=== PATIENT | male | born 1955 | race Caucasian/White ===

== ENCOUNTER → 2017-12-10 | Outpatient (CLI) | payer BC ==
[~2017-12-10] MED LIST: 2% VISCOUS XYLOCAINE; ALPR0.5T11 PO; ALPR0.5T3 PO; ALPR2TAB6 PO; FINA5TAB6 PO; HYDR-3454 PO; NITR100C3 PO; PARO20TA4 PO; PREG150C PO; SRTR100T PO; TMSL.4C PO
--- NOTE | 2017-12-10 13:22 | Diagnostic Imaging Report ---
PROCEDURE: CT right lower extremity without contrast. TECHNIQUE: Axially acquired CT was obtained through the right lower extremity without intravenous contrast. Coronal and sagittal reformations were also performed. INDICATION: Preop planning for knee replacement. COMPARISON: None. FINDINGS: Multiple series are performed, including portions of the right hip, distal right femur, the right knee, and small [id number] images of the right ankle. Advanced degenerative changes are seen in the right hip and knee. There are very large osteophytes seen in all three compartments of the right knee. There is a small right knee joint effusion with surrounding soft tissue prominence and fat stranding, likely synovitis. There are severe degenerative changes at the proximal tibiofibular joint with heterotopic ossification. There may be a cystic fluid collection posterior to the proximal tibiofibular joint as well, may represent a ganglion cyst. No acute fracture is seen. No focal muscular atrophy is appreciated. The imaged portions of the common peroneal and tibial nerve are unremarkable. There is soft tissue density at the lateral aspect of the knee, which is ill defined, with internal hypodensity suggestive of a fluid collection, may be confluent with the tibiofibular joint as well. There is a prominent os acetabuli on the right. Fragmentation is seen at the distal tip of the medial malleolus, likely from remote trauma. IMPRESSION: 1. Advanced tricompartmental degenerative changes in the right knee, with a joint effusion and likely synovitis. There is also a fluid collection about the proximal degenerated tibiofibular joint, which is poorly defined on this noncontrast CT, may represent a large ganglion cyst or bursitis. 2. Advanced degenerative changes of the right hip. Dictated by: Dictated on workstation # [id number]
== END ==
LOC: RAD 12:09
PROVIDERS: ATTEND Orthopaedic Surgery
DX: Z01.818 Encounter for other preprocedural examination (principal); M17.11 Unilateral primary osteoarthritis, right knee; M16.11 Unilateral primary osteoarthritis, right hip
CPT/HCPCS: 73700

== ENCOUNTER 2018-01-06 12:58 | Outpatient (CLI) | payer BC ==
[~2018-01-06] VITALS: Ht 177.8 cm; Wt 115.0 kg
[2018-01-06] MEDS ORDERED: ALFU10TA11 PO (13:17)
[2018-01-06] MEDS ORDERED: VILA40TA PO (13:17)
[2018-01-06] MEDS ORDERED: HYDR-3584 PO (13:17)
[2018-01-06] MEDS ORDERED: FINA5TAB6 PO (13:17)
[2018-01-06] MEDS ORDERED: GABA-490 PO (13:17)
[2018-01-06 13:20] VITALS: BP 131/89
[2018-01-06 13:53] LABS: BASOPHILS % (AUTO) 1 % (0-10); EOSINOPHILS # (AUTO) 0.2 10^3/uL (0.0-0.3); EOSINOPHILS % (AUTO) 3 % (0-10); HEMATOCRIT 43 % (40-54); HEMOGLOBIN 14.5 G/DL (13.3-17.7); LYMPHOCYTES # (AUTO) 2.1 X 10^3 (1.0-4.0); LYMPHOCYTES % (AUTO) 28 % (12-44); MEAN CORPUSCULAR HEMOGLOBIN 31 PG (25-34); MEAN CORPUSCULAR HGB CONC 34 G/DL (32-36); MEAN CORPUSCULAR VOLUME 91 FL (80-99); MEAN PLATELET VOLUME 9.9 FL (7.4-10.4); MONOCYTES # (AUTO) 0.6 X 10^3 (0.0-1.0); MONOCYTES % (AUTO) 8 % (0-12); NEUTROPHILS # (AUTO) 4.4 X 10^3 (1.8-7.8); NEUTROPHILS % (AUTO) 60 % (42-75); PLATELET COUNT 322 10^3/uL (130-400); RED BLOOD COUNT 4.69 10^6/uL (4.35-5.85); RED CELL DISTRIBUTION WIDTH 14.1 % (10.0-14.5); WHITE BLOOD COUNT 7.3 10^3/uL (4.3-11.0)
[2018-01-06 13:56] LABS: BILIRUBIN,URINE NEGATIVE (NEGATIVE); CLARITY,URINE CLEAR; COLOR,URINE YELLOW; GLUCOSE, URINE (UA) NEGATIVE (NEGATIVE); KETONES,URINE NEGATIVE (NEGATIVE); LEUKOCYTE ESTERASE ,URINE NEGATIVE (NEGATIVE); NITRITE,URINE NEGATIVE (NEGATIVE); PH,URINE 6 (5-9); PROTEIN,URINE NEGATIVE (NEGATIVE); UROBILINOGEN,URINE NORMAL (NORMAL)
[2018-01-06 14:04] LABS: INR 0.9 (0.8-1.4); PROTHROMBIN TIME PATIENT 12.2 SEC (12.2-14.7)
--- NOTE | 2018-01-06 14:04 | Diagnostic Imaging Report ---
INDICATION: Preop for knee arthroplasty. TIME OF EXAM: 02:15 p.m. Correlation is made with prior study from 06/02/2014. FINDINGS: The heart size is normal. The pulmonary vascularity is unremarkable. The lungs are clear. No infiltrate, effusion or pneumothorax is detected. IMPRESSION: No acute cardiopulmonary process is detected. Dictated by: Dictated on workstation # [id number]
[2018-01-06 14:05] LABS: BACTERIA,URINE NEGATIVE /HPF; WBC,URINE RARE /HPF
[2018-01-06 14:06] LABS: SQUAMOUS EPITHELIAL CELL,UR 0-2 /HPF
[2018-01-06 14:20] LABS: ERYTHROCYTE SEDIMENTATION RATE 10 MM/HR (0-30)
[2018-01-06 14:23] LABS: ALANINE AMINOTRANSFERASE 22 U/L (0-55); ALBUMIN 4.1 GM/DL (3.2-4.5); ALKALINE PHOSPHATASE 79 U/L (40-136); BILIRUBIN,TOTAL 0.4 MG/DL (0.1-1.0); BUN/CREATININE RATIO 17; CALCIUM 8.9 MG/DL (8.5-10.1); CARBON DIOXIDE 28 MMOL/L (21-32); CHLORIDE 107 MMOL/L (98-107); CREATININE SERUM 0.78 MG/DL (0.60-1.30); GFR ESTIMATED > 60; GLUCOSE 95 MG/DL (70-105); POTASSIUM 3.8 MMOL/L (3.6-5.0); SODIUM 141 MMOL/L (135-145)
== END 2018-01-06 14:56 | disposition home or self-care (01) ==
LOC: PREOP 12:58
PROVIDERS: ATTEND Orthopaedic Surgery
DX: Z01.810 Encounter for preprocedural cardiovascular examination (principal); Z01.811 Encounter for preprocedural respiratory examination; Z01.812 Encounter for preprocedural laboratory examination; Z11.2 Encounter for screening for other bacterial diseases; M17.11 Unilateral primary osteoarthritis, right knee; R53.83 Other fatigue
CPT/HCPCS: 36415; 71046; 80053; 81000; 85025; 85610; 85652; 86850; 86900; 86901; 87081; 93005

== ENCOUNTER 2018-01-15 06:09 | Inpatient (IN) | payer BC ==
--- NOTE | 2018-01-06 12:46 | HISTORY AND PHYSICAL ---
DATE OF SERVICE: This will be for right total knee arthroplasty. This will be an inpatient admission. HISTORY OF PRESENT ILLNESS: The patient is a 62-year-old gentleman with longstanding progressive right knee pain. He has known severe osteoarthritis of his knee. He has undergone treatment with injections and activity modifications as well as with anti-inflammatories without relief. He reports interference with work and his recreational activities and due to failure to improve with conservative measures, the patient elected to proceed with total knee arthroplasty. REVIEW OF SYSTEMS: No chest pain, no shortness of breath. No dysuria. FAMILY HISTORY: Significant for cancer. PRIMARY CARE PROVIDER: Dr. Person. MEDICATIONS: 1. Alfuzosin. 2. Finasteride. 2. Gabapentin 3. Hydroxyzine 4. Viibryd. ALLERGIES: To PENICILLIN, SULFA and ASPIRIN. SOCIAL HISTORY: The patient reports regular tobacco use, denies alcohol use. RADIOGRAPHS: Reveal complete loss of lateral and patellofemoral joint space with osteophyte formation noted in both compartments. PAST MEDICAL HISTORY: Significant for benign prostatic hypertrophy. PAST SURGICAL HISTORY: Denies. PHYSICAL EXAMINATION: GENERAL: The patient is well developed, well-nourished in no acute distress. HEENT: Normocephalic, atraumatic. Pupils are equal, round and reactive. Oropharynx is clear. NECK: Supple, no lymphadenopathy. LUNGS: Clear to auscultation bilaterally. HEART: Regular rate and rhythm. ABDOMEN: Soft, nontender, nondistended. EXTREMITIES: The right knee demonstrates valgus alignment. He ambulates with an antalgic gait. There is a slight effusion noted. No skin lesions are noted. Pulses are symmetric distally. Range of motion is 0/3/120, is tender laterally. There is no varus valgus laxity. Negative anterior and posterior drawer. He has pain laterally with Leonor's. IMPRESSION: Severe right knee osteoarthritis. PLAN: Right total knee arthroplasty. The risks, benefits, options, ramifications and recovery were discussed at length with the patient. He understands and wishes to proceed. Job ID: [id number] DocumentID: [id number] Dictated Date: 01/06/2018 11:35:[address] Date: 01/06/2018 12:45:11 Dictated By: FRANC BELLO MD
[~2018-01-15] VITALS: Ht 177.8 cm; Wt 115.0 kg
[~2018-01-15 06:09] MED LIST changes: +ALFU10TA11 PO; +GABA-490 PO; +HYDR-3584 PO; +VILA40TA PO
[2018-01-15 06:15] VITALS: BP 143/97
[2018-01-15] MEDS ORDERED: LIDOCAINE PF 2% 5 ML (XYLOCAINE) VIAL ONE (06:36)
[2018-01-15] MEDS ORDERED: SEVOFLURANE (ULTANE) 15 ML INHAL SOLN ONE ×8 (06:36→08:54)
[2018-01-15] MEDS ORDERED: DEXAMETHASONE 10 MG/ML (DECADRON) 1 ML VIAL ONE (06:36)
[2018-01-15] MEDS ORDERED: fentaNYL INJECTION 100 MCG/2 ML AMP ONE (06:36)
[2018-01-15] MEDS ORDERED: ONDANSETRON 4 MG/2 ML (SDV) Z0FRAN ONE (06:36)
[2018-01-15] MEDS ORDERED: proPOfol 200 MG/20 ML (DIPRIVAN) VIAL IV ONE (06:36)
[2018-01-15] MEDS ORDERED: MIDAZOLAM 2 MG/2 ML (VERSED) VIAL ONE (06:37)
[2018-01-15] MEDS ORDERED: LACTATED RINGERS 1,000 ML IV PRN (06:38)
[2018-01-15] MEDS ORDERED: CEFUROXIME INJECTION 1,500 MG in NS (IVPB) 100 ML IV ONE (06:45)
[2018-01-15] MEDS ORDERED: diphenhydrAMINE 50 MG/ML INJ (BENADRYL) IVP PRN (07:30)
[2018-01-15] MEDS ORDERED: ONDANSETRON 4 MG/2 ML (SDV) Z0FRAN IVP PRN ×2 (07:30→09:45)
[2018-01-15] MEDS ORDERED: ACETAMINOPHEN 325 MG TABLET/CAPLET (TYLENOL) PO PRN (07:30)
--- NOTE | 2018-01-15 07:32 | Progress Note-Pre Operative ---
Pre-Operative Progress Note H&P Reviewed The H&P was reviewed, patient examined and no changes noted. Date Seen by Provider: Jan 15, 2018 Time Seen by Provider: 07:15 Date H&P Reviewed: Jan 15, 2018 Time H&P Reviewed: 07:15 Pre-Operative Diagnosis: right knee primary osteoarthritis FRANC BELLO MD Jan 15, 2018 07:31
--- NOTE | 2018-01-15 07:33 | Progress Note-Post Operative ---
Post-Operative Progess Note Surgeon (s)/Tank House Operator (s) Surgeon FRANC BELLO MD Tank House Operator: Laron Galo Pre-Operative Diagnosis right knee primary osteoarthritis Post-Operative Diagnosis right knee primary osteoarthritis Procedure & Operative Findings Date of Procedure 01/15/18 Procedure Performed/Findings right total knee arthroplasty Anesthesia Type GETA Estimated Blood Loss Estimated blood loss (mL): minimal Specimens/Packing Specimens Removed minimal Packing: none FRANC EBLLO MD Jan 15, 2018 07:33
--- NOTE | 2018-01-15 07:35 | D/C HH Face to Face Order ---
D/C Face to Face Orders Instructions for Patient Patient Instructions/FollowUp: three weeks Physician to follow Patient: three weeks Discharge Diet for Home: Regular Diet Patient Data-Allergies,Ht & Wt Patient Allergies: Coded Allergies: Penicillins (Unverified Allergy, Intermediate, HIVES/SWELLING, 01/06/18) Sulfa (Sulfonamide Antibiotics) (Verified Allergy, Intermediate, HIVES/ SWELLING, 01/06/18) aspirin (Verified Allergy, Intermediate, HIVES/SWELLING, 01/06/18) Height (Feet): 5 Height (Inches): 10.00 Weight (Pounds): 253 Weight (Ounces): 8.0 Home Health Need/Face to Face Date of Face to Face: Jan 15, 2018 Clinical Findings: Instability, Muscle weakness, Non or partial weight bearing , Pain with ambulation, Unsteady gait I have seen Pt [id number]: Yes Discharged To: Home Diagnosis/Conditions: right total knee arthroplasty Problems/Diagnosis/Condition: Patient is Homebound due to: William fall risk due to instabilty, Muscle weakness , Pain w/ambulation Homebound Status Due to the above stated illness, injury or surgical procedure (medical condition or diagnosis) and associated clinical findings, the patient is homebound because of his/her inability to leave home except with aid of a supportive device and/or person AND leaving the home requires a considerable and taxing effort or is medically contraindicated. Pt req the following assistanc: [facility] Line Start Date: Jan 15, 2018 Line Start Time: 0620 Line Type: Peripheral IV Site Location: Wrist Certify Stmt I certify that this patient is under my care and that I, a nurse practitioner or a physician; a surveyor instrument assistant working with me, had a face to face encounter that - meets the physician face to face encounter requirements with this patient as dated. FRANC BELLO MD Jan 15, 2018 07:35
[2018-01-15] MEDS ORDERED: ROPIVACAINE IU ONE ×4 (08:30)
[2018-01-15] MEDS ORDERED: [UNRECOGNIZED DRUG - OTHER] IU ONE ×4 (08:30)
[2018-01-15] MEDS ORDERED: EPINEPHRINE IU ONE ×4 (08:30)
[2018-01-15] MEDS ORDERED: HYDROmorphone (DILAUDID) 2 MG/ML VIAL ONE (09:18)
[2018-01-15] MEDS ORDERED: morphine INJ 10 MG/ML 1ML (SYR OR VIAL) ONE (09:18)
[2018-01-15] MEDS ORDERED: OXYC-197 PO (09:29)
[2018-01-15] MEDS: morphine INJ 10 MG/ML 1ML (SYR OR VIAL) IVP PRN ×2 (09:40→09:45)
[2018-01-15] MEDS ORDERED: MEPERIDINE (DEMEROL) INJ 50 MG/ML IVP PRN (09:45)
[2018-01-15] MEDS: HYDROmorphone (DILAUDID) 2 MG/ML VIAL IVP PRN ×2 (09:52→10:02)
--- NOTE | 2018-01-15 10:07 | Progress Note-Standard ---
Standard Progress Note Progress Notes/Assess & Plan Date Seen by Provider: Jan 15, 2018 Time Seen by Provider: 10:06 Progress/Assessment & Plan post op check No complaints denies paresthesias Radiographs--HW well positioned. No fractures RLE--2 plus DP and PT pulses with brisk cap refill. Intact DF and PF of toes and ankle. Sensation intact to light touch throughout s/p RTKA mobilize as able FRANC BELLO MD Jan 15, 2018 10:07
--- NOTE | 2018-01-15 10:18 | Diagnostic Imaging Report ---
Procedure: Right knee in OR at 9:46. Indication: Postop right knee. AP and lateral views of the right knee were received from the OR. The CT right knee exam performed on 12/10/2017 did note advanced tricompartmental degenerative disease of the right knee. On this study there are are postsurgical changes consistent with a total arthroplasty. The prosthetic components seen to be in good position. There is some gas about the knee joint and skin eleno are evident on the anterior aspect of the knee joint. There is no fracture or acute bony abnormality identified. Impression: Stable postoperative right knee. Dictated by: Dictated on workstation # [id number]
[2018-01-15] MEDS ORDERED: CATHETER FLUSH 10 ML SYR IV PRN (10:45)
[2018-01-15] MEDS: SENNA W/DOCUSATE (SENOKOT S) TABLET PO SCH ×2 (10:49→21:01)
[2018-01-15] MEDS: NS IV 1000 ML 1,000 ML IV SCH ×3 (10:50→23:00)
[2018-01-15] MEDS: morphine PCA 30 MG/30 ML VIAL IV PRN (10:57)
[2018-01-15 12:00] VITALS: BP 142/93
[2018-01-15] MEDS ORDERED: GABAPENTIN 400 MG (NEURONTIN) CAP PO SCH (13:00)
[2018-01-15] MEDS ORDERED: hydrOXYzine (ATARAX) 10 MG TAB PO SCH (13:00)
[2018-01-15] MEDS ORDERED: PATIENT MAY USE OWN MEDS, ALL MC SCH (13:00)
[2018-01-15] MEDS: oxyCODONE/APAP 5/325MG (PERCOCET 5) TABLET PO PRN ×3 (13:12→23:01)
--- NOTE | 2018-01-15 13:13 | OPERATIVE REPORT ---
DATE OF SERVICE: 01/15/2018 PREOPERATIVE DIAGNOSIS: Right knee primary osteoarthritis. POSTOPERATIVE DIAGNOSIS: Right knee primary osteoarthritis. PROCEDURE: Right total knee arthroplasty. SURGEON: Darrell Bello MD. COUPON MANIFEST CLERK: DIEGO Watt, who assisted throughout the procedure and closed the incision. ANESTHESIA: General endotracheal by [place] CRNA. TOURNIQUET TIME: 75 minutes at 300 mmHg. ESTIMATED BLOOD LOSS: Minimal. DRAINS: None. COMPLICATIONS: None. POSTOPERATIVE PLANS: Routine protocol. The patient was transferred to the recovery room awake and in stable condition. MATERIALS: MicroPort cemented size 7 femur, cemented size 7 tibia with a 10 mm insert and cemented size 35 patellar button. STATEMENT OF MEDICAL NECESSITY: The patient is a 62-year-old gentleman with longstanding progressive right knee pain. Radiographs revealed severe patellofemoral and lateral compartment arthrosis. He had tried injections, anti-inflammatories and rest without relief and due to functional impairment and interference with activities of daily living, the patient elected to proceed with surgical intervention. DESCRIPTION OF PROCEDURE: After risks and benefits of procedure were discussed and questions were answered, an informed consent was signed and placed on chart. The operative site was confirmed in the preoperative holding area and initialed by the surgeon. The patient was transported to the operating room. After adequate levels of general endotracheal anesthetic were obtained, a timeout was called confirming the operative site. The right lower extremity was prepped and draped in the usual sterile fashion with the leg elevated and the knee flexed. The tourniquet was inflated to 300 mmHg. Standard anterior approach was utilized. Hemostasis was obtained with a cautery. Medial parapatellar arthrotomy was performed leaving 1 cm cuff on the patella for later reattachment. A portion of the fat pad was resected. Subperiosteal release was performed in the proximal medial tibia being careful to stay on the bony surface. The ACL was resected. The femoral custom made block was placed and fit anatomically. This was then pinned into position. The cutting block was then placed and the distal cut was made. The 7 cutting block was placed and the cuts were made from posterior to anterior. A subperiosteal release was then carefully performed and the posterior distal femur again being careful to stay on the bony surface with a curved osteotome. The tibial custom block was then placed through the drop lizzie transected the intermalleolar axis and the cut was made. The 7 baseplate was placed and again the drop lizzie transected the intermalleolar access. This was prepared with a drill and keel punch. The femoral trial was placed. The trochlear cut was made. A 10 mm insert was placed and the patella was then prepared by using the freehand technique and resecting 10 mm off the undersurface. Peg guide was placed and peg holes were drilled. The 35 trial was placed and he was taken through range of motion. Full extension was easily obtained, 120 degrees of flexion with gravity was easily obtained. There is no anterior/posterior or medial/lateral laxity in flexion or extension. The trials were removed. The joint was irrigated with pulse lavage. Bone ends were irrigated and dried. The periarticular block without Toradol was placed in the posterior capsule, medial and lateral retinaculum extensor mechanism and subcutaneous tissues. The bone ends were irrigated and dried. The tibial baseplate was cemented into position and excess cement was removed. The superior surface was irrigated and dried and the polyethylene insert was placed. The distal femur was irrigated and dried. The femoral prosthesis was cemented into position. Excess cement was removed. The knee was brought in full extension until the cement cured. The undersurface of the patella was irrigated and dried. The patellar button was cemented into position. The excessive cement was removed. The knee was brought out into full extension until the cement had cured. Once the cement had cured, the knee was taken through range of motion. Full extension was easily obtained 120 degrees flexion with gravity was easily obtained. There is no anterior/posterior or medial/lateral laxity in flexion or extension. The joint was further irrigated with pulse lavage. The arthrotomy was closed with #2 Tevdek in [id number] interrupted fashion. The knee was flexed. The patella tracked well with no undue tension at the repair site. The subcutaneous tissues were irrigated with pulse lavage using a total of 6 liters throughout the procedure. An 0 Vicryl was used deep subcutaneous tissue, 2-0 Vicryl for the superficial subcutaneous tissue, eleno used on the skin. A soft dressing was applied. The tourniquet was deflated. The patient was transferred to the recovery room awake in stable condition. Job ID: [id number] DocumentID: [id number] Dictated Date: 01/15/2018 09:30:44 Computational Chemist Date: 01/15/2018 13:12:48 Dictated By: DARRELL BELLO MD
[2018-01-15] MEDS: CEFUROXIME INJECTION 750 MG in NS (IVPB) 100 ML IV SCH ×2 (14:53→22:57)
--- NOTE | 2018-01-15 14:53 | Anesthesia-General Post-Op ---
General Patient Condition Mental Status/LOC: Same as Preop Cardiovascular: Satisfactory Nausea/Vomiting: Absent Respiratory: Satisfactory Pain: Controlled Complications: Absent Post Op Complications Complications None Follow Up Care/Instructions Patient Instructions None needed. Anesthesia/Patient Condition Patient Condition Patient is doing well, no complaints, stable vital signs, no apparent adverse anesthesia problems. No complications reported per nursing. ISH LANDIS CRNA Jan 15, 2018 14:53
[2018-01-15 15:20] VITALS: BP 133/82
--- NOTE | 2018-01-15 15:21 | Physical Therapy Evaluation ---
PT Evaluation-General Medical Diagnosis Admission Date Jan 15, 2018 at 06:09 Medical Diagnosis: right TKA Onset Date: Jan 15, 2018 Therapy Diagnosis Therapy Diagnosis: impaired mobility, strength, endurance, ROM Height/Weight Height (Feet): 5 Height (Inches): 10.00 Weight (Pounds): 253 Weight (Ounces): 8.0 Precautions Precautions/Isolations: Standard Precautions Weight Bear Status Right Lower Extremity: Right Weight Bearing/Tolerated Referral Physician: Laron Galo Reason for Referral: Evaluation/Treatment Medical History Additional Medical History BPH Current History elective surgery, patient has had longstanding progressive knee pain Social History Home: Multilevel Current Living Status: Spouse Entry Into Home: Stairs Without Railing PT Steps Into Home: 2 Patient states he does not have to go to the other floors of his home. Prior/Core FIM Prior Level of Function Functional [place] Measure 0=Not Assessed/NA 4=Minimal Assistance 1=Total Assistance 5=Supervision or Setup 2=Maximal Assistance 6=Modified [place] 3=Moderate Assistance 7=Complete [place] Bed Mobility: 7 Transfers (B,C,W/C) (FIM): 7 Gait: 7 PT Evaluation-Current Subjective Patient in bed pre tx, agrees to PT, has pain of 2/10 in right knee. Pt/Family Goals to be independent at home Objective Patient Orientation: Person, Place, Situation Attachments: SCD's, IV ROM/Strength ROM Lower Extremities right knee flexion 85 degrees, extension +10 degrees Neuromuscular (Tone, Coordination, Reflexes) NT Sensory Vision: Functional Hearing: Functional Sensation Right Lower Extremit: Impaired Sensation Left Lower Extremity: Intact Sensation Lower Extremities Patient states that his right leg below the knee is still fairly numb. He does have intact light touch sensation though. Transfers Functional [place] Measure 0=Not Assessed/NA 4=Minimal Assistance 1=Total Assistance 5=Supervision or Setup 2=Maximal Assistance 6=Modified [place] 3=Moderate Assistance 7=Complete [place] Transfers (B, C, W/C) (FIM): 4 Scootin Rollin Supine to/from Sit: 4 Sit to/from Stand: 4 Patient needs assist getting right leg into and out of bed. Cues for positioning and safety. Gait Mode of Locomotion: Walk Anticipated Mode of Locomotion: Walk Gait (FIM): 2 Distance: 100' Gait Level of Assist: 4 Gait Persons Needed: 1 Gait Assistive Device: FWW Comments/Gait Description Patient ambulated 100' with a rolling walker with CGA, slow, antalgic, flexed right knee, decreased stance time on the right leg. Balance Sitting Static: Normal Sitting Dynamic: Normal Standing Static: Fair Standing Dynamic: Fair Treatment Right side TKA protocol x10 (AP, QS, HS, SAQ, SLR), CPM donned and set to 60 degrees flexion and -2 degrees extension Assessment/Needs Patient has impaired mobility, strength, endurance, ROM post right TKA. Rehab Potential: Fair PT Short Term Goals Short Term Goals Time Frame: Jan 22, 2018 Transfers (B,C,W/C) (FIM): 5 Gait (FIM): 5 Gait Distance Comment: 150' Gait Level of Assist: 5 Gait Assistive Device: FWW PT Plan Problem List Problem List: Activity Tolerance, Functional Strength, Safety, Balance, Gait, Transfer, Bed Mobility, ROM Treatment/Plan Treatment Plan: Continue Plan of Care Treatment Plan: Bed Mobility, Education, Functional Activity Jose, Functional Strength, Gait, Safety, Therapeutic Exercise, Transfers Treatment Duration: Jan 22, 2018 Frequency: 11 times per week Estimated Hrs Per Day: .25 hour per day (15-30') Patient and/or Family Agrees t: Yes Safety Risks/Education Patient Education: Gait Training, Transfer Techniques, Reviewed Use of Ice, Correct Positioning, Disease Process, Safety Issues Teaching Recipient: Patient Teaching Methods: Demonstration, Discussion Response to Teaching: Reinforcement Needed Discharge Recommendations Plan Patient will perform bed mobility and transfer training, balance and endurance training, functional strengthening, stair training, gait training, and education , to improve functional mobility and independence at home. Therapy D/C Recommendations: Home w/ Family Support Time/GCodes Time In: 1450 Time Out: 1515 Total Billed Treatment Time: 25 Total Billed Treatment 1 visit EVL 15' GT 10' LUZMARIA QUINTANA PT Jan 15, 2018 15:21
[2018-01-15] MEDS: ALFUZOSIN HCL 10 MG TAB (UROXATRAL) PO SCH (18:15)
--- NOTE | 2018-01-15 18:49 | Consultation ---
History of Present Illness History of Present Illness Patient Consulted On([place]/time) 01/15/18 18:42 Date Seen by Provider: Jan 15, 2018 Time Seen by Provider: 18:30 Reason for Visit: RIGHT KNEE REPLACEMENT History of Present Illness PT IS A 62 Y/O MALE WHO IS KNOWN TO ME FROM CLINIC. HE PRESENTED TO THE HOSPITAL FOR A PLANNED RIGHT KNEE REPLACEMENT DUE TO SEVERE OA OF RIGHT KNEE. PT HAD PLANNED SURGERY THIS MORNING WITH DR. BELLO. HE REPORTS THAT HE IS DOING WELL THIS EVENING, NOT HAVING TO USE THE ASSOCIATE QUALITY ENGINEER PAIN PUMP VERY FREQUENTLY, HAS A GOOD APPETITE AND DENIES DIZZINESS OR CHEST PAIN. PER NURSING REPORT - THE PT HAD AN ELEVATED BLOOD PRESSURE ON ADMISSION TO 4TH FLOOR IN THE 149/80 RANGE AND THEN IT JUMPED UP ABOVE 170/90'S. HE WAS GIVEN METOPROLOL ORALLY AND HAD IMPROVEMENT IN HIS BLOOD PRESSURES. Allergies and Home Medications Allergies Coded Allergies: Penicillins (Unverified Allergy, Intermediate, HIVES/SWELLING, 01/06/18) Sulfa (Sulfonamide Antibiotics) (Verified Allergy, Intermediate, HIVES/ SWELLING, 01/06/18) aspirin (Verified Allergy, Intermediate, HIVES/SWELLING, 01/06/18) Home Medications Alfuzosin HCl 10 Mg Tab.er.24h, 10 MG PO DAILY, (Reported) Finasteride 5 Mg Tablet, 5 MG PO DAILY, (Reported) Gabapentin 400 Mg Capsule, 400 MG PO TID, (Reported) Hydroxyzine HCl 10 Mg Tablet, 10 MG PO TID, (Reported) Oxycodone HCl/Acetaminophen 1 Each Tablet, 1 EACH PO Q4H Prescribed by: FRANC BELLO on 01/15/18 0929 Vilazodone Hydrochloride 40 Mg Tablet, 40 MG PO DAILY, (Reported) Patient Home Medication List Home Medication List Reviewed: Yes Past Djwsjiq-Rkpqeu-Dttosc Hx Patient Social History Alcohol Use: Denies Use Recreational Drug Use: No Smoking Status: Current Everyday Smoker Type Used: Cigarettes Recent Foreign Travel: No Contact w/Someone Who Travel: No Recent Infectious Disease Expo: No Recent Hopitalizations: No Physical Abuse: No Sexual Abuse: No Mistreated: No Fear: No Immunizations Up To Date PED Vaccines UTD: No Seasonal Allergies Seasonal Allergies: Yes Surgeries History of Surgeries: Yes (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) Respiratory History of Respiratory Disorde: No Cardiovascular History of Cardiac Disorders: No Neurological History of Neurological Disord: No Reproductive System Sexually Transmitted Disease: No HIV/AIDS: No Genitourinary History of Genitourinary Disor: Yes Genitourinary Disorders: Benign Prostatic Hyperpl, Prostate Problems Gastrointestinal History of Gastrointestinal Di: No Musculoskeletal History of Musculoskeletal Dis: Yes (R KNEE OSTEOARTHRITIS) Musculoskeletal Disorders: Arthritis Endocrine History of Endocrine Disorders: No HEENT History of HEENT Disorders: No Loss of Vision: Denies Hearing Impairment: Denies Cancer History of Cancer: Yes (MOUTH) Did You Recieve Any Treatments: Yes Type of Tx Receive: Surgical Intervention Psychosocial History of Psychiatric Problem: Yes (MILD) Behavioral Health Disorders: Anxiety, Depression Integumentary History of Skin or Integumenta: No Blood Transfusions History of Blood Disorders: No Adverse Reaction to a Blood Tr: No (N/A) Reviewed Nursing Assessment Reviewed/Agree w Nursing PMH: Yes Family Medical History Significant Family History: Hypertension Review of Systems-General Constitutional: No chills, No fever, No malaise, No weakness EENTM: No hoarseness, No mouth pain, No nose pain, No throat pain Respiratory: No cough, No dyspnea on exertion, No short of breath Cardiovascular: No chest pain, No edema, No palpitations Gastrointestinal: No abdominal pain, No constipation, No diarrhea, No nausea, No vomiting Genitourinary: no symptoms reported Musculoskeletal: joint pain, other (RIGHT KNEE PAIN) Skin: no symptoms reported Psychiatric/Neurological: Denies Anxiety, Denies Depressed All Other Systems Reviewed Negative Unless Noted: Yes Physical Exam-General Problems Physical Exam Vital Signs Vital Signs - First Documented 01/15/18 06:15 Temp 98.8 Pulse 70 Resp 18 B/P (MAP) 143/97 (112) Pulse Ox 97 O2 Delivery Room Air Capillary Refill : General Appearance: WD/WN, no apparent distress Eyes: Bilateral Eye Normal Inspection, Bilateral Eye PERRL, Bilateral Eye EOMI HEENT: PERRL/EOMI, pharynx normal Neck: non-tender, supple, normal inspection Respiratory: chest non-tender, lungs clear, normal breath sounds, no respiratory distress, no accessory muscle use Cardiovascular: regular rate, rhythm, no edema Gastrointestinal: normal bowel sounds, non tender, soft, no organomegaly, no pulsatile mass Extremities: normal capillary refill, other (BILATERAL LOWER LEGS WITH SCD'S IN PLACE - RIGHT KNEE WITH POLAR PACK STRAPPED TO KNEE) Neurologic/Psychiatric: mental health program manager II-XII nml as tested, alert, normal mood/affect, oriented x 3 Skin: warm/dry Lymphatic: no adenopathy Assessment/Plan Assessment/Plan Admission Diagnosis/Plan RIGHT KNEE OSTEOARTHRITIS POST-OP RIGHT KNEE REPLACEMENT HYPERTENSION BPH TOBACCOISM RIGHT KNEE OSTEOARTHRITIS - PT IS NOW IMMEDIATELY POST-OP RIGHT KNEE REPLACEMENT - PLANNING PHYSICAL THERAPY AND EVENTUAL DISCHARGE TO HOME WITH HOME HEALTH AND PHYSICAL THERAPY. HYPERTENSION - PT HAS HISTORY OF ELEVATED BLOOD PRESSURE - HAS BEEN GIVEN METOPROLOL IN HOSPITAL, WILL MONITOR SYMPTOMS AND PRESSURES CLOSELY. BPH - CONTINUE WITH HOME MEDS. TOBACCOISM - ENCOURAGE SMOKING CESSATION. WILL NEED DVT PROPHYLAXIS WITH XARELTO 10MG DAILY X 12 DAYS OUTPATIENT. Admission Status: Inpatient Order (span 2 midnights) Reason for Inpatient Admission: PT WAS ADMITTED FOR RIGHT KNEE REPLACEMENT - POST-OPERATIVE MANAGEMENT AND THERAPY - HE WILL NEED MORE THAN TWO MIDNIGHTS IN THE HOSPITAL FOR ROUTINE RECOVERY Clinical Quality Measures DVT/VTE Risk/Contraindication: Risk Factor Score Per Nursin RFS Level Per Nursing on Admit: 4+=Very High BRYANT VILLEGAS MD Jan 15, 2018 18:49
[2018-01-15 20:10] VITALS: BP 144/85
[2018-01-15] MEDS: GABAPENTIN 400 MG (NEURONTIN) CAP PO SCH (21:02)
[2018-01-15] MEDS: hydrOXYzine (ATARAX) 10 MG TAB PO SCH (21:02)
[2018-01-16] VITALS: BP 150/70
[2018-01-16 04:00] VITALS: BP 145/84
[2018-01-16] MEDS: MULTIVIT W/MINERALS TAB (THERAGRAN M) PO SCH (05:53)
[2018-01-16] MEDS: oxyCODONE/APAP 5/325MG (PERCOCET 5) TABLET PO PRN ×3 (05:53→15:32)
[2018-01-16 06:20] LABS: HEMOGLOBIN 13.3 G/DL (13.3-17.7)
--- NOTE | 2018-01-16 07:48 | Progress Note-Standard ---
Standard Progress Note Progress Notes/Assess & Plan Date Seen by Provider: Jan 16, 2018 Time Seen by Provider: 07:47 Progress/Assessment & Plan post op check No complaints denies paresthesias Radiographs--HW well positioned. No fractures RLE--2 plus DP and PT pulses with brisk cap refill. Intact DF and PF of toes and ankle. Sensation intact to light touch throughout s/p RTKA mobilize as able Final Diagnosis No complaints has been ambulating Vital Signs Date Time Temp Pulse Resp B/P (MAP) Pulse Ox O2 Delivery O2 Flow Rate FiO2 01/16/18 06:00 18 01/16/18 04:00 98.2 82 17 145/84 (104) 94 Room Air 01/16/18 00:00 97.7 70 18 150/70 (96) 94 Room Air 01/15/18 20:10 97.4 83 20 144/85 (104) 94 Room Air 01/15/18 20:10 94 Room Air 01/15/18 18:20 18 01/15/18 15:20 96.7 78 18 133/82 (99) 94 Room Air 01/15/18 12:00 97.2 91 18 142/93 (109) 91 Room Air 01/15/18 10:57 16 01/15/18 10:52 Room Air I & O 01/16/18 07:00 Intake Total 1820 ml Balance 1820 ml Laboratory Tests Test 01/16/18 06:11 Range/Units Hemoglobin 13.3 13.3-17.7 G/DL Hematocrit 40 40-54 % RLE--dressing intact. No calf tenderness. Neg Krystyna's. Neg SLR s/p RTKA doing well PT/OT appreciate Dr Person's assistance FRANC BELLO MD Jan 16, 2018 07:48
[2018-01-16 08:00] VITALS: BP 128/78
--- NOTE | 2018-01-16 08:28 | Progress Note ---
Subjective Date Seen by Provider: Jan 16, 2018 Time Seen by Provider: 08:27 Subjective/Events-last exam PT IS A 62 Y/O MALE STATUS POST RIGHT KNEE REPLACEMENT ON 01/15/18. PT STATES THAT HE IS FEELING PRETTY GOOD TODAY- BUT HAS BEEN HAVING A LITTLE MORE PAIN THIS MORNING COMPARED TO YESTERDAY AFTER SURGERY. HE DENIES CHEST PAIN OR SHORTNESS OF BREATH. Review of Systems General: Fatigue HEENT: No Head Aches Pulmonary: No Dyspnea, No Cough Cardiovascular: No: Chest Pain, Palpitations Gastrointestinal: No: Nausea, Abdominal Pain, Constipation Musculoskeletal: leg pain (RIGHT KNEE) Neurological: No: Weakness, Confusion Objective Exam Last Set of Vital Signs Vital Signs Date Time Temp Pulse Resp B/P (MAP) Pulse Ox O2 Delivery O2 Flow Rate FiO2 01/16/18 06:00 18 01/16/18 04:00 98.2 82 145/84 (104) 94 Room Air Capillary Refill : Less Than 3 Seconds I&O Intake and Output 01/16/18 00:00 Intake Total 1220 ml Balance 1220 ml Intake Oral 1020 ml IV Total 200 ml # Voids 4 Daily Weight Change No General: Alert, Oriented X3, Cooperative HEENT: Atraumatic, PERRLA Neck: Supple Lungs: Clear to Auscultation Heart: Regular Rate Abdomen: Normal Bowel Sounds, Soft, No Tenderness Extremities: Other (RIGHT KNEE WITH POLAR ICE PACK IN PLACEM COMPRESSION SOCKS ON BILATERAL LOWER EXTREMITIES) Psych/Mental Status: Mental Status NL, Mood NL Results Lab Laboratory Tests 01/16/18 06:11: Hemoglobin 13.3, Hematocrit 40 Assessment/Plan Assessment/Plan Assess & Plan/Chief Complaint RIGHT KNEE OSTEOARTHRITIS POST-OP RIGHT KNEE REPLACEMENT HYPERTENSION BPH TOBACCOISM RIGHT KNEE OSTEOARTHRITIS - PT IS NOW POST-OP DAY #1 RIGHT KNEE REPLACEMENT - PLANNING PHYSICAL THERAPY AND EVENTUAL DISCHARGE TO HOME WITH HOME HEALTH AND PHYSICAL THERAPY. HYPERTENSION - PT HAS HISTORY OF ELEVATED BLOOD PRESSURE - HAS BEEN STARTED ON METOPROLOL IN HOSPITAL, WILL MONITOR SYMPTOMS AND PRESSURES CLOSELY. BPH - CONTINUE WITH HOME MEDS. TOBACCOISM - ENCOURAGE SMOKING CESSATION. WILL NEED DVT PROPHYLAXIS WITH XARELTO 10MG DAILY X 12 DAYS OUTPATIENT. Clinical Quality Measures DVT/VTE Risk/Contraindication: Risk Factor Score Per Nursin RFS Level Per Nursing on Admit: 4+=Very High BRYANT VILLEGAS MD Jan 16, 2018 08:28
[2018-01-16] MEDS: GABAPENTIN 400 MG (NEURONTIN) CAP PO SCH ×3 (08:50→21:17)
[2018-01-16] MEDS: FINASTERIDE (PROSCAR) 5 MG TAB PO SCH (08:50)
[2018-01-16] MEDS: ENOXAPARIN 30 MG/0.3 ML (LOVENOX) SYR SC SCH ×2 (08:50→19:34)
[2018-01-16] MEDS: hydrOXYzine (ATARAX) 10 MG TAB PO SCH ×3 (08:51→21:17)
[2018-01-16] MEDS: SENNA W/DOCUSATE (SENOKOT S) TABLET PO SCH ×2 (08:55→21:16)
[2018-01-16] MEDS ORDERED: TAMSULOSIN 0.4 MG (FLOMAX) CAP PO SCH (09:00)
[2018-01-16] MEDS ORDERED: NON-FORMULARY MEDICATION 1 EA EA (Finasteride 5 MG) PO SCH (09:00)
[2018-01-16] MEDS: morphine PCA 30 MG/30 ML VIAL IV PRN (09:15)
--- NOTE | 2018-01-16 09:43 | Physical Therapy Daily Note ---
PT Daily Note-Current Subjective Patient is very agreeable to participate with PT. He does have increase c/o pain with exercises. Pain Numeric Pain Scale: 9 Location: Right Location Body Site: Knee Pain Description: Acute Mental Status Patient Orientation: Normal For Age Attachments: Polar Pack, IV Transfers Functional [place] Measure 0=Not Assessed/NA 4=Minimal Assistance 1=Total Assistance 5=Supervision or Setup 2=Maximal Assistance 6=Modified [place] 3=Moderate Assistance 7=Complete IndependenceIRFPAI Quality Coding Scale 6 Independent with activity with or without an assistive device 5 Patient requires set up or clean up by helper. Patient completes activity by themselves 4 Supervision or touching assist (CGA). Pedro provide cues , steadying assist 3 The helper provides less than half the effort to complete the activity 2 The helper provides more than half the effort to complete the activity 1 Dependent. The helper does all the effort to complete an activity 7 Patient refused to complete or attempt activity 9 The patient did not perform the activity before the current illness or injury 88 Not attempted due to Medical conditions or safety concerns Transfers (B, C, W/C) (FIM): 5 Scootin Rollin Supine to/from Sit: 5 Sit to/from Stand: 5 Bed to/from Chair: 5 Weight Bearing Right Lower Extremity: Right Weight Bearing/Tolerated Left Lower Extremity: Left Full Weight Bearing Gait Training Gait (FIM): 5 Distance (FIM): 3=150 ft Distance: 225' Gait Level of Assist: 5 Gait Assistive Device: FWW step to, slow, antalgic Exercises Supine Ex: Ankle pumps, Quad Set, Heel Slides Supine Reps: 10 Seated Therapy Exercises: Ankle pumps, Long arc quads Seated Reps: 15 Assessment Patient tolerated treatment well and is on the CPM 0-70 degrees with polar pack in place. Patient is limited due to pain. Patient is receiving pain pills and WEIGHT CLERK. PT Short Term Goals Short Term Goals Time Frame: Jan 22, 2018 Transfers (B,C,W/C) (FIM): 5 Gait (FIM): 5 Gait Distance Comment: 150' Gait Level of Assist: 5 Gait Assistive Device: FWW PT Plan Treatment/Plan Treatment Plan: Continue Plan of Care Treatment Plan: Bed Mobility, Education, Functional Activity Jose, Functional Strength, Gait, Safety, Therapeutic Exercise, Transfers Treatment Duration: Jan 22, 2018 Frequency: 11 times per week Estimated Hrs Per Day: .25 hour per day (15-30') Patient and/or Family Agrees t: Yes Time/GCodes Time In: 825 Time Out: 855 Total Billed Treatment Time: 30 Total Billed Treatment 1 visit EX 15 min GT 15 min PAT BLACKWELL PT Jan 16, 2018 09:43
[2018-01-16] MEDS: FAMOTIDINE 20 MG (PEPCID) TABLET PO SCH ×2 (10:00→21:17)
[2018-01-16 12:00] VITALS: BP 125/76
--- NOTE | 2018-01-16 12:48 | Anesthesia-General Post-Op ---
General Patient Condition Mental Status/LOC: Same as Preop Cardiovascular: Satisfactory Nausea/Vomiting: Absent Respiratory: Satisfactory Pain: Controlled Complications: Absent Post Op Complications Complications None Follow Up Care/Instructions Patient Instructions None needed. Anesthesia/Patient Condition Patient Condition Patient is doing well, no complaints, stable vital signs, no apparent adverse anesthesia problems. No complications reported per nursing. KEEGAN DEL ROSARIO CRNA Jan 16, 2018 12:47
--- NOTE | 2018-01-16 15:00 | Physical Therapy Daily Note ---
PT Daily Note-Current Subjective Patient agrees to PT. Pain Numeric Pain Scale: 7 Location: Right Location Body Site: Knee Pain Description: Acute Mental Status Patient Orientation: Normal For Age Attachments: Polar Pack, IV Transfers Functional [place] Measure 0=Not Assessed/NA 4=Minimal Assistance 1=Total Assistance 5=Supervision or Setup 2=Maximal Assistance 6=Modified [place] 3=Moderate Assistance 7=Complete IndependenceIRFPAI Quality Coding Scale 6 Independent with activity with or without an assistive device 5 Patient requires set up or clean up by helper. Patient completes activity by themselves 4 Supervision or touching assist (CGA). [place] provide cues , steadying assist 3 The helper provides less than half the effort to complete the activity 2 The helper provides more than half the effort to complete the activity 1 Dependent. The helper does all the effort to complete an activity 7 Patient refused to complete or attempt activity 9 The patient did not perform the activity before the current illness or injury 88 Not attempted due to Medical conditions or safety concerns Transfers (B, C, W/C) (FIM): 5 Scootin Rollin Supine to/from Sit: 5 Sit to/from Stand: 5 Weight Bearing Right Lower Extremity: Right Weight Bearing/Tolerated Left Lower Extremity: Left Full Weight Bearing Gait Training Gait (FIM): 5 Distance (FIM): 3=150 ft Distance: 300' Gait Level of Assist: 5 Gait Assistive Device: FWW antalgic, functional Exercises Supine Ex: Ankle pumps, Quad Set, Heel Slides, Straight leg raise Supine Reps: 15 Seated Therapy Exercises: Long arc quads Seated Reps: 15 Treatments CPM 0-76 degrees with polar pack in place Assessment Patient is progressing with treatment plan. Continues to have difficulty initiating right quad contraction. PT Short Term Goals Short Term Goals Time Frame: Jan 22, 2018 Transfers (B,C,W/C) (FIM): 5 Gait (FIM): 5 Gait Distance Comment: 150' Gait Level of Assist: 5 Gait Assistive Device: FWW PT Plan Treatment/Plan Treatment Plan: Continue Plan of Care Treatment Plan: Bed Mobility, Education, Functional Activity Jose, Functional Strength, Gait, Safety, Therapeutic Exercise, Transfers Treatment Duration: Jan 22, 2018 Frequency: 11 times per week Estimated Hrs Per Day: .25 hour per day (15-30') Patient and/or Family Agrees t: Yes Time/GCodes Time In: 1415 Time Out: 1440 Total Billed Treatment Time: 25 Total Billed Treatment 1 visit GT 10 min EX 15 min PAT BLACKWELL PT Jan 16, 2018 15:00
[2018-01-16 16:00] VITALS: BP 132/86
--- NOTE | 2018-01-16 16:13 | Occupational Therapy Eval ---
OT Evaluation-General/PLF Medical Diagnosis Admission Date Jan 15, 2018 at 06:09 Medical Diagnosis: right TKA Onset Date: Jan 15, 2018 Therapy Diagnosis Therapy Diagnosis: Weakness Height/Weight Height (Feet): 5 Height (Inches): 10.00 Weight (Pounds): 253 Weight (Ounces): 8.0 Precautions Precautions/Isolations: Fall Prevention, Standard Precautions, Pressure Ulcer Weight Bear Status Weight Bearing Restriction: Weight Bearing/Tolerated Referral Physician: Laron Galo Referral Reason: Activity Tolerance, Self Care, Evaluation/Treatment, Strengthening/ROM Medical History Pertinent Medical History: HTN Additional Medical History mouth CA, benign prostatic hyperpl, anxiety, depression Current History Pt. had elective knee surgery. States that he has been living with this knee "for awhile." Reviewed History: Yes Social History Home: [facility] Current Living Status: Spouse Entry Into Home: Stairs Without Railing Steps Into Home: 2 ADL-Prior Level of Function ADL PLOF Comments Pt. was independent with all daily skills. DME/Equipment: Bath Chair, Shower Occupation: Pt. works for [employer] Self: Yes OT Current Status Subjective Pt. reports that he has had pain today, but does not report pain level. States he has had pain meds. Appearance Pt. in bed. Mental Status/Objective Patient Orientation: Person, Place, Time, Situation Current Upper Extremity ROM WFL Upper Extremity Strength 5/5 bilateral UE strength ADL-Treatment Functional [place] Measure 0=Not Assessed/NA 4=Minimal Assistance 1=Total Assistance 5=Supervision or Setup 2=Maximal Assistance 6=Modified [place] 3=Moderate Assistance 7=Complete IndependenceIRFPAI Quality Coding Scale 6 Independent with activity with or without an assistive device 5 Patient requires set up or clean up by helper. Patient completes activity by themselves 4 Supervision or touching assist (CGA). [place] provide cues , steadying assist 3 The helper provides less than half the effort to complete the activity 2 The helper provides more than half the effort to complete the activity 1 Dependent. The helper does all the effort to complete an activity 7 Patient refused to complete or attempt activity 9 The patient did not perform the activity before the current illness or injury 88 Not attempted due to Medical conditions or safety concerns OT talks with pt. in depth. Pt. begins with stating that he has been managing for awhile, and will have assist at home. Does not feel that he needs OT. Pt. states that he has been able to get up with someone in the room, with no assist needed. Pt. declines bathing or toileting at this time. However, does have many questions regarding home set up and ways to toilet self. Pt. is educated on using toilet tongs as needed, and well as techniques for getting on and off of toilet. OT places BSC over pt's toilet in room. Pt. also has questions regarding CPM set up at home, showering, and his pets. OT educates him on placing chair at side of bed to hold CPM, and how to cover his knee to keep it dry to shower at home. Pt. is also educated on tub/transfer benches, as he states that his shower is small. Overall, pt. states that he has two grown sons and a spouse that can assist as needed. Does not feel that he needs to practice ADLs in hospital. OT encourages him to have nursing bring OT back in if a questions should arise. Education OT Patient Education: Correct positioning, Exercise program, Modified ADL techniques, Progress toward Goal/Update tx plan, Purpose of tx/functional activities, Reviewed precautions, Rehab process, Transfer techniques Teaching Recipient: Patient Teaching Methods: Demonstration Response to Teaching: Verbalize Understanding, Return Demonstration OT Short Term Goals Short Term Goals Transfers (B,C,W/C) (FIM): 5 1=Demonstrate adherence to instructed precautions during ADL tasks. 2=Patient will verbalize/demonstrate understanding of assistive devices/ modifications for ADL. 3=Patient will improve strength/tolerance for activity to enable patient to perform ADL's. OT It Account Manager Goals It Account Manager Goals Time Frame: Jan 16, 2018 All education provided. No further OT at this time warranted. Additional Goals: 2-Verbalize Understanding 1=Demonstrate adherence to instructed precautions during ADL tasks. 2=Patient will verbalize/demonstrate understanding of assistive devices/ modifications for ADL. 3=Patient will improve strength/tolerance for activity to enable patient to perform ADL's. OT Education/Plan Problem List/Assessment Assessment: No Skilled OT Needs ID'd Discharge Recommendations Plan/Recommendations: Discontinue OT Therapy D/C Recommendations: Home w/ Family Support Comment Pt. is also educated on sock aide and LH sponge if needed. Verbalizes understanding. Treatment Plan/Plan of Care Treatment,Training & Education: Yes Treatment Duration: Jan 16, 2018 Frequency: 1 time per week Estimated Hrs Per Day: .5 hour per day Agreement: Yes Rehab Potential: Good Time/GCodes Start Time: 11:20 Stop Time: 11:42 Total Time Billed (hr/min): 22 Billed Treatment Time 1, EVM Discharge from OT services ANANDA HULL OT Jan 16, 2018 16:13
[2018-01-16] MEDS: ALFUZOSIN HCL 10 MG TAB (UROXATRAL) PO SCH (17:09)
[2018-01-16] MEDS: HYDROcodone/APAP 10 MG/325 MG (LORTAB) TAB PO PRN (19:07)
[2018-01-16 20:00] VITALS: BP 131/91
[2018-01-16] MEDS: NS IV 1000 ML 1,000 ML IV SCH (23:10)
[2018-01-17 00:12] VITALS: BP 129/88
[2018-01-17 04:43] VITALS: BP 138/90
[2018-01-17 05:55] LABS: HEMOGLOBIN 13.2 G/DL (13.3-17.7)
[2018-01-17] MEDS: morphine PCA 30 MG/30 ML VIAL IV PRN (06:04)
[2018-01-17] MEDS: MULTIVIT W/MINERALS TAB (THERAGRAN M) PO SCH (06:05)
[2018-01-17] MEDS ORDERED: morphine INJ 4 MG/ML 1 ML (VIAL/SYRINGE) IVP PRN (07:00)
--- NOTE | 2018-01-17 07:02 | Progress Note-Standard ---
Standard Progress Note Progress Notes/Assess & Plan Date Seen by Provider: Jan 17, 2018 Time Seen by Provider: 07:01 Progress/Assessment & Plan post op check No complaints denies paresthesias Radiographs--HW well positioned. No fractures RLE--2 plus DP and PT pulses with brisk cap refill. Intact DF and PF of toes and ankle. Sensation intact to light touch throughout s/p RTKA mobilize as able Final Diagnosis no complaints Vital Signs Date Time Temp Pulse Resp B/P (MAP) Pulse Ox O2 Delivery O2 Flow Rate FiO2 01/17/18 06:04 18 01/17/18 04:43 98.7 98 18 138/90 (106) 94 Room Air 01/17/18 00:12 98.9 89 17 129/88 (102) 95 Room Air 01/16/18 20:00 100.1 90 20 131/91 (104) 93 Room Air 01/16/18 18:30 20 01/16/18 16:00 100.1 85 20 132/86 (101) 96 Room Air 01/16/18 12:00 99.5 87 20 125/76 (92) Room Air 01/16/18 09:15 20 01/16/18 08:00 Room Air 01/16/18 08:00 98.6 78 20 128/78 (95) 95 Room Air I & O 01/17/18 07:00 Intake Total 1690 ml Balance 1690 ml Laboratory Tests Test 01/17/18 05:30 Range/Units Hemoglobin 13.2 L 13.3-17.7 G/DL Hematocrit 39 L 40-54 % RLE--incision clean and dry with early echymosis. SLR with assistance no calf tenderness. Neg Mallorie's s/p RTKA doing well PT/OT likely DC tomorrow FRANC BELLO MD Jan 17, 2018 07:02
[2018-01-17 08:00] VITALS: BP 149/80
--- NOTE | 2018-01-17 08:44 | Progress Note ---
Subjective Date Seen by Provider: Jan 17, 2018 Time Seen by Provider: 08:55 Subjective/Events-last exam PT REPORTS THAT HE IS READY FOR HOME, HE STATES THAT HE HAS PAIN IN HIS KNEE, BUT IS TAKING ORAL MEDICATIONS. HE STATES THAT HE IS NOT CONSTIPATED, DOES NOT HAVE SHORTNESS OF BREATH OR CHEST PAIN. HE REPORTS THAT HE IS 5 DAYS WITHOUT SMOKING AND WILL TRY TO KEEP THAT UP ON DISCHARGE Review of Systems General: No Fatigue, No Malaise HEENT: No Head Aches Pulmonary: No Dyspnea, No Cough Cardiovascular: No: Chest Pain, Palpitations, Edema Gastrointestinal: No: Nausea, Abdominal Pain, Constipation Genitourinary: No Dysuria Musculoskeletal: leg pain (RIGHT KNEE PAIN - - ) Neurological: No: Weakness Objective Exam Last Set of Vital Signs Vital Signs Date Time Temp Pulse Resp B/P (MAP) Pulse Ox O2 Delivery O2 Flow Rate FiO2 01/17/18 06:04 18 01/17/18 04:43 98.7 98 138/90 (106) 94 Room Air Capillary Refill : Less Than 3 Seconds I&O Intake and Output 01/17/18 00:00 Intake Total 2290 ml Balance 2290 ml Intake Oral 1300 ml IV Total 990 ml # Voids 10 # Bowel Movements 2 General: Alert, Oriented X3, Cooperative, No Acute Distress Neck: Supple Lungs: Clear to Auscultation Heart: Regular Rate Abdomen: Normal Bowel Sounds, Soft, No Tenderness Extremities: No Clubbing, No Cyanosis, No Edema Neuro: Cranial Nerves 3-12 NL Psych/Mental Status: Mental Status NL, Mood NL Results Lab Laboratory Tests 01/17/18 05:30: Hemoglobin 13.2L, Hematocrit 39L Assessment/Plan Assessment/Plan Assess & Plan/Chief Complaint RIGHT KNEE OSTEOARTHRITIS POST-OP RIGHT KNEE REPLACEMENT HYPERTENSION BPH TOBACCOISM RIGHT KNEE OSTEOARTHRITIS - PT IS NOW POST-OP DAY #2 RIGHT KNEE REPLACEMENT - CONTINUE WITH PHYSICAL THERAPY AND PLANNED DISCHARGE TO HOME WITH HOME HEALTH AND PHYSICAL THERAPY. HYPERTENSION - PT HAS HISTORY OF ELEVATED BLOOD PRESSURE - HAS BEEN STARTED ON METOPROLOL IN HOSPITAL, WILL MONITOR SYMPTOMS AND PRESSURES CLOSELY. - CONTINUE WITH METOPROLOL OUTPATIENT. BPH - CONTINUE WITH HOME MEDS. TOBACCOISM - ENCOURAGE CONTINUED SMOKING CESSATION. WILL NEED DVT PROPHYLAXIS WITH XARELTO 10MG DAILY X 11 DAYS OUTPATIENT. - FIRST DOSE OF XARELTO TO BE GIVEN TONIGHT IN THE HOSPITAL. Clinical Quality Measures DVT/VTE Risk/Contraindication: Risk Factor Score Per Nursin RFS Level Per Nursing on Admit: 4+=Very High BRYANT VILLEGAS MD Jan 17, 2018 08:44
[2018-01-17] MEDS ORDERED: RIVA10TA PO (08:48)
[2018-01-17] MEDS ORDERED: SENN-20 PO (08:48)
[2018-01-17] MEDS ORDERED: FAMO20TA5 PO (08:48)
[2018-01-17] MEDS ORDERED: METO-387 PO (08:48)
[2018-01-17] MEDS: GABAPENTIN 400 MG (NEURONTIN) CAP PO SCH ×3 (08:55→20:45)
[2018-01-17] MEDS: FINASTERIDE (PROSCAR) 5 MG TAB PO SCH (08:56)
[2018-01-17] MEDS: FAMOTIDINE 20 MG (PEPCID) TABLET PO SCH ×2 (08:57→20:43)
[2018-01-17] MEDS: hydrOXYzine (ATARAX) 10 MG TAB PO SCH ×3 (08:57→20:43)
[2018-01-17] MEDS: HYDROcodone/APAP 10 MG/325 MG (LORTAB) TAB PO PRN ×3 (08:58→18:08)
[2018-01-17] MEDS: SENNA W/DOCUSATE (SENOKOT S) TABLET PO SCH ×2 (08:58→20:43)
[2018-01-17] MEDS: ENOXAPARIN 30 MG/0.3 ML (LOVENOX) SYR SC SCH (08:59)
--- NOTE | 2018-01-17 09:01 | Physical Therapy Daily Note ---
PT Daily Note-Current Subjective Patient c/o 8/10 right knee pain with movement. Pain Numeric Pain Scale: 8 Location: Right Location Body Site: Knee Pain Description: Acute Mental Status Patient Orientation: Normal For Age Transfers Functional [place] Measure 0=Not Assessed/NA 4=Minimal Assistance 1=Total Assistance 5=Supervision or Setup 2=Maximal Assistance 6=Modified [place] 3=Moderate Assistance 7=Complete IndependenceIRFPAI Quality Coding Scale 6 Independent with activity with or without an assistive device 5 Patient requires set up or clean up by helper. Patient completes activity by themselves 4 Supervision or touching assist (CGA). [place] provide cues , steadying assist 3 The helper provides less than half the effort to complete the activity 2 The helper provides more than half the effort to complete the activity 1 Dependent. The helper does all the effort to complete an activity 7 Patient refused to complete or attempt activity 9 The patient did not perform the activity before the current illness or injury 88 Not attempted due to Medical conditions or safety concerns Transfers (B, C, W/C) (FIM): 6 Scootin Rollin Supine to/from Sit: 6 Sit to/from Stand: 6 Weight Bearing Right Lower Extremity: Right Weight Bearing/Tolerated Left Lower Extremity: Left Full Weight Bearing Gait Training Gait (FIM): 6 Distance (FIM): 3=150 ft Distance: 300' x 2 Gait Level of Assist: 6 Gait Assistive Device: FWW slow and antalgic. Patient continues to have much difficulty initiating right quad contraction Stair Training Stair Training: Handrails/: 2 handrails Stairs (FIM): 5 #of Steps: 6 Stairs: Pattern: Step to Level of Assist: 5 Exercises Supine Ex: Ankle pumps, Quad Set, Heel Slides, Straight leg raise Supine Reps: 15 (AAROM right LE) Seated Therapy Exercises: Ankle pumps, Long arc quads Seated Reps: 15 (2 sets AAROM with patient unable to contract right quad) Assessment Patient continues to have much difficulty initiating/emanuel right quad muscle. Patient lacks 30 degrees extension and is very resistive with all ROM right LE. PT Short Term Goals Short Term Goals Time Frame: Jan 22, 2018 Transfers (B,C,W/C) (FIM): 5 Gait (FIM): 5 Gait Distance Comment: 150' Gait Level of Assist: 5 Gait Assistive Device: FWW PT Plan Treatment/Plan Treatment Plan: Continue Plan of Care Treatment Plan: Bed Mobility, Education, Functional Activity Jose, Functional Strength, Gait, Safety, Therapeutic Exercise, Transfers Treatment Duration: Jan 22, 2018 Frequency: 11 times per week Estimated Hrs Per Day: .25 hour per day (15-30') Patient and/or Family Agrees t: Yes Time/GCodes Time In: 800 Time Out: 825 Total Billed Treatment Time: 25 Total Billed Treatment 1 visit EX 15 min GT 10 min PAT BLACKWELL PT Jan 17, 2018 09:01
[2018-01-17 12:00] VITALS: BP 138/81
--- NOTE | 2018-01-17 13:52 | Physical Therapy Daily Note ---
PT Daily Note-Current Subjective Patient rates right knee pain 8/10 with meds issued. Pain Numeric Pain Scale: 8 Location: Right Location Body Site: Knee Pain Description: Acute Mental Status Patient Orientation: Normal For Age Transfers Functional [place] Measure 0=Not Assessed/NA 4=Minimal Assistance 1=Total Assistance 5=Supervision or Setup 2=Maximal Assistance 6=Modified [place] 3=Moderate Assistance 7=Complete IndependenceIRFPAI Quality Coding Scale 6 Independent with activity with or without an assistive device 5 Patient requires set up or clean up by helper. Patient completes activity by themselves 4 Supervision or touching assist (CGA). [place] provide cues , steadying assist 3 The helper provides less than half the effort to complete the activity 2 The helper provides more than half the effort to complete the activity 1 Dependent. The helper does all the effort to complete an activity 7 Patient refused to complete or attempt activity 9 The patient did not perform the activity before the current illness or injury 88 Not attempted due to Medical conditions or safety concerns Transfers (B, C, W/C) (FIM): 6 Scootin Rollin Supine to/from Sit: 6 Sit to/from Stand: 6 Patient uses left LE to move right LE due to no activation of right quad Weight Bearing Right Lower Extremity: Right Weight Bearing/Tolerated Left Lower Extremity: Left Full Weight Bearing Gait Training Gait (FIM): 6 Distance (FIM): 3=150 ft Distance: 300' Gait Level of Assist: 6 Gait Assistive Device: FWW slow, antalgic, minimal weight bearing of right LE due to pain Exercises Supine Ex: Ankle pumps, Quad Set, Heel Slides, Straight leg raise Supine Reps: 15 (AAROM to PROM right LE ) Seated Therapy Exercises: Ankle pumps, Long arc quads Seated Reps: 15 (AAROM) Treatments CPM 0-90 degrees with polar pack in place. Assessment Patient continues to have difficulty activating right quad muscles and requires AAROM to perform exercises. Patient is very resistive with all ROM. PT Short Term Goals Short Term Goals Time Frame: Jan 22, 2018 Transfers (B,C,W/C) (FIM): 5 Gait (FIM): 5 Gait Distance Comment: 150' Gait Level of Assist: 5 Gait Assistive Device: FWW PT Plan Treatment/Plan Treatment Plan: Continue Plan of Care Treatment Plan: Bed Mobility, Education, Functional Activity Jose, Functional Strength, Gait, Safety, Therapeutic Exercise, Transfers Treatment Duration: Jan 22, 2018 Frequency: 11 times per week Estimated Hrs Per Day: .25 hour per day (15-30') Patient and/or Family Agrees t: Yes Time/GCodes Time In: 1311 Time Out: 1334 Total Billed Treatment Time: 23 Total Billed Treatment 1 visit EX 15 min GT 8 min PAT BLACKWELL PT Jan 17, 2018 13:52
[2018-01-17 15:20] VITALS: BP 132/84
[2018-01-17] MEDS ORDERED: RIVAROXABAN 10 MG TABLET (XARELTO) PO SCH (18:00)
[2018-01-17] MEDS: ALFUZOSIN HCL 10 MG TAB (UROXATRAL) PO SCH (18:08)
[2018-01-17 19:15] VITALS: BP 129/76
[2018-01-18] VITALS: BP 128/72
[2018-01-18] MEDS: HYDROcodone/APAP 10 MG/325 MG (LORTAB) TAB PO PRN ×2 (02:14→06:04)
[2018-01-18 04:40] LABS: HEMOGLOBIN 11.5 G/DL (13.3-17.7)
[2018-01-18] MEDS: MULTIVIT W/MINERALS TAB (THERAGRAN M) PO SCH (06:02)
[2018-01-18 08:00] VITALS: BP 149/93
[2018-01-18] MEDS: FINASTERIDE (PROSCAR) 5 MG TAB PO SCH (08:02)
[2018-01-18] MEDS: SENNA W/DOCUSATE (SENOKOT S) TABLET PO SCH (08:02)
[2018-01-18] MEDS: FAMOTIDINE 20 MG (PEPCID) TABLET PO SCH (08:03)
[2018-01-18] MEDS: GABAPENTIN 400 MG (NEURONTIN) CAP PO SCH (08:03)
[2018-01-18] MEDS: hydrOXYzine (ATARAX) 10 MG TAB PO SCH (08:04)
--- NOTE | 2018-01-18 08:26 | Physical Therapy Daily Note ---
PT Daily Note-Current Subjective States that he is doing okay. Pain Numeric Pain Scale: 4 Transfers Functional [place] Measure 0=Not Assessed/NA 4=Minimal Assistance 1=Total Assistance 5=Supervision or Setup 2=Maximal Assistance 6=Modified [place] 3=Moderate Assistance 7=Complete IndependenceIRFPAI Quality Coding Scale 6 Independent with activity with or without an assistive device 5 Patient requires set up or clean up by helper. Patient completes activity by themselves 4 Supervision or touching assist (CGA). [place] provide cues , steadying assist 3 The helper provides less than half the effort to complete the activity 2 The helper provides more than half the effort to complete the activity 1 Dependent. The helper does all the effort to complete an activity 7 Patient refused to complete or attempt activity 9 The patient did not perform the activity before the current illness or injury 88 Not attempted due to Medical conditions or safety concerns Weight Bearing Right Lower Extremity: Right Weight Bearing/Tolerated Left Lower Extremity: Left Full Weight Bearing Gait Training Gait (FIM): 6 Distance (FIM): 3=150 ft Distance: 500' Gait Level of Assist: 6 Gait Assistive Device: FWW Exercises Seated Therapy Exercises: LE Protocol Seated Reps: 15 Assessment Current Status: Excellent Progress Patient is doing well. PT Short Term Goals Short Term Goals Time Frame: Jan 22, 2018 Transfers (B,C,W/C) (FIM): 5 Gait (FIM): 5 Gait Distance Comment: 150' Gait Level of Assist: 5 Gait Assistive Device: FWW PT Plan Treatment/Plan Treatment Plan: Continue Plan of Care Treatment Plan: Bed Mobility, Education, Functional Activity Jose, Functional Strength, Gait, Safety, Therapeutic Exercise, Transfers Treatment Duration: Jan 22, 2018 Frequency: 11 times per week Estimated Hrs Per Day: .25 hour per day (15-30') Patient and/or Family Agrees t: Yes Time/GCodes Time In: 0800 Time Out: 0825 Total Billed Treatment Time: 25 Total Billed Treatment 1, EX x 10, GT x 15 G Codes Necessary: CAROL Youssef PT Jan 18, 2018 08:26
[2018-01-18 09:23] VITALS: BP 127/79
--- NOTE | 2018-01-18 09:45 | Progress Note-Standard ---
Standard Progress Note Progress Notes/Assess & Plan Date Seen by Provider: Jan 18, 2018 Time Seen by Provider: 09:44 Progress/Assessment & Plan post op check No complaints denies paresthesias Radiographs--HW well positioned. No fractures RLE--2 plus DP and PT pulses with brisk cap refill. Intact DF and PF of toes and ankle. Sensation intact to light touch throughout s/p RTKA mobilize as able Final Diagnosis No complaints Vital Signs Date Time Temp Pulse Resp B/P (MAP) Pulse Ox O2 Delivery O2 Flow Rate FiO2 01/18/18 09:23 97.1 94 18 127/79 (95) 01/18/18 08:00 99.1 107 18 149/93 (111) 95 0.00 01/18/18 00:00 100.1 88 16 128/72 (90) 94 Room Air 01/17/18 19:15 99.8 92 18 129/76 (93) 95 Room Air 01/17/18 15:20 99.9 93 20 132/84 (100) 96 Room Air 01/17/18 12:00 98.9 96 18 138/81 (100) 97 Room Air I & O 01/18/18 07:00 Intake Total 2690 ml Balance 2690 ml Laboratory Tests Test 01/18/18 04:15 Range/Units Hemoglobin 11.5 L 13.3-17.7 G/DL Hematocrit 35 L 40-54 % RLE--incision clean and dry. SLR with assistance. Neg Krystyna's. No calf tenderness s/p RTKA doing well DC home FRANC BELLO MD Jan 18, 2018 09:45
[2018-01-18 10:10] VITALS: BP 127/79
--- NOTE | 2018-01-18 10:47 | DISCHARGE SUMMARY ---
DATE OF SERVICE: DIAGNOSES: 1. Right knee primary osteoarthritis. 2. Hypertension. PROCEDURE: Right total knee arthroplasty. SUMMARY: The patient is a 62-year-old gentleman, who was admitted right total knee arthroplasty, which he underwent without complications. Postoperatively, he did very well. At the time of discharge, his wound was clean and dry. No calf tenderness. Negative Homans' sign. He had cleared physical therapy. He was tolerating his diet well and tolerating pain with oral pain medication. Condition at discharge is good. Discharge diet is regular. Followup is in 3 weeks. Home physical therapy has been arranged. DISCHARGE MEDICATIONS: Home medications Xarelto for 12 days and hydrocodone as needed for pain. Job ID: [id number] DocumentID: [id number] Dictated Date: 01/18/2018 09:44:23 Outside Machinist Helper Date: 01/18/2018 10:46:56 Dictated By: FRANC BELLO MD
== END 2018-01-18 10:10 | disposition home health service (06) | DRG 470 ==
LOC: 4TH 06:09 → SURG 06:10 → 4TH 10:30
PROVIDERS: ADMIT Orthopaedic Surgery; ATTEND Orthopaedic Surgery
PROC: 0SRC0J9 Replacement of Right Knee Joint with Synthetic Substitute, Cemented, Open Approach (ICD-10-PCS; principal; 2018-01-15 07:25)
DX: M17.11 Unilateral primary osteoarthritis, right knee (principal); N40.0 Benign prostatic hyperplasia without lower urinary tract symptoms; F17.210 Nicotine dependence, cigarettes, uncomplicated; F32.9 Major depressive disorder, single episode, unspecified; F41.9 Anxiety disorder, unspecified; I10 Essential (primary) hypertension
CPT/HCPCS: 36415; 73560; 85014; 85018; 94664

== ENCOUNTER → 2022-07-23 | Outpatient (CLI) | payer MEDICARE, OTHER ==
[~2022-07-23] MED LIST changes: -ALFU10TA11 PO; +ALFU10TA12 PO; +FAMO20TA5 PO; +MTP25TSR PO; +OXYC1TAB87 PO; +RIVA10T PO; +SENN-20 PO
--- NOTE | 2022-07-23 14:17 | Diagnostic Imaging Report ---
PROCEDURE: CT left lower extremity without contrast. TECHNIQUE: Multiple contiguous axial images were obtained through the left lower extremity without the use of intravenous contrast. Sagittal and coronal reformations were then performed. Auto Exposure Controls were utilized during the CT exam to meet ALARA standards for radiation dose reduction. INDICATION: Left knee pain. Operative planning CT. FINDINGS: Left hip: Severe osteoarthritis. No osseous or soft tissue abnormality that would require immediate follow-up. Left knee: Tricompartmental osteoarthritis. Small knee joint effusion. No incidental osseous or soft tissue abnormality. Left ankle: Small ankle joint effusion. No concerning focal osseous lesion. IMPRESSION: Left knee tricompartmental osteoarthritis. Dictated by: Dictated on workstation # [id number]
== END ==
LOC: RAD 08:36
PROVIDERS: ATTEND Family Medicine Sports Medicine
DX: M17.12 Unilateral primary osteoarthritis, left knee (principal)
CPT/HCPCS: 73700

== ENCOUNTER 2022-08-15 12:01 | Outpatient (CLI) | payer MEDICARE, OTHER ==
[~2022-08-15] VITALS: Ht 177.8 cm; Wt 114.0 kg
[2022-08-15 13:20] LABS: BASOPHILS # (AUTO) 0.1 10^3/uL (0.0-0.1); BASOPHILS % (AUTO) 1 % (0-10); BILIRUBIN,URINE NEGATIVE (NEGATIVE); CLARITY,URINE CLEAR; COLOR,URINE YELLOW; EOSINOPHILS # (AUTO) 0.2 10^3/uL (0.0-0.3); EOSINOPHILS % (AUTO) 3 % (0-10); GLUCOSE, URINE (UA) NEGATIVE (NEGATIVE); HEMATOCRIT 43 % (40-54); HEMOGLOBIN 14.4 g/dL (13.3-17.7); KETONES,URINE NEGATIVE (NEGATIVE); LEUKOCYTE ESTERASE ,URINE NEGATIVE (NEGATIVE); LYMPHOCYTES # (AUTO) 2.1 10^3/uL (1.0-4.0); LYMPHOCYTES % (AUTO) 37 % (12-44); MEAN CORPUSCULAR HEMOGLOBIN 30 pg (25-34); MEAN CORPUSCULAR HGB CONC 33 g/dL (32-36); MEAN CORPUSCULAR VOLUME 91 fL (80-99); MEAN PLATELET VOLUME 10.1 fL (9.0-12.2); MONOCYTES # (AUTO) 0.4 10^3/uL (0.0-1.0); MONOCYTES % (AUTO) 6 % (0-12); NEUTROPHILS # (AUTO) 2.9 10^3/uL (1.8-7.8); NEUTROPHILS % (AUTO) 52 % (42-75); NITRITE,URINE NEGATIVE (NEGATIVE); PH,URINE 5.5 (5-9); PLATELET COUNT 232 10^3/uL (130-400); PROTEIN,URINE NEGATIVE (NEGATIVE); WHITE BLOOD COUNT 5.6 10^3/uL (4.3-11.0)
[2022-08-15 13:30] VITALS: BP 126/80
[2022-08-15 13:31] LABS: PROTHROMBIN TIME PATIENT 13.2 SEC (12.2-14.7)
[2022-08-15 13:35] LABS: BACTERIA,URINE NEGATIVE /HPF
[2022-08-15 13:38] LABS: BILIRUBIN,TOTAL 0.5 MG/DL (0.1-1.0); CALCIUM 9.3 MG/DL (8.5-10.1); CREATININE SERUM 0.94 MG/DL (0.60-1.30); POTASSIUM 3.9 MMOL/L (3.6-5.0)
[2022-08-15 13:39] LABS: ERYTHROCYTE SEDIMENTATION RATE 7 MM/HR (0-30)
--- NOTE | 2022-08-15 13:46 | Physical Therapy Pre-Op Eval ---
PT Pre-Surgical Assessment Type of Surgery Type of Surgery: scheduled left TKA Prior Level of Function Current Living Status: Alone Locomotion (Upon Admit): Independent Subjective Subjective No pain at rest. Patient states his son is going to stay with him for a while to help. Entry Into Home: Stairs Without Railing Steps Into Home: 2 Motor Control Motor Control: Motor Control WNL ROM left knee has full extension, flexion to 95 degrees Strength Strength: WFL Gait independent ambulation without AD Treatment Rendered Treatment: Patient instructed in assistive device, supported ambulation. Patient instructed in and given written program of ROM and strengthening exercises to be preformed post-op. Patient instructed in movement precautions where applicable. Patient demonstrates understandings of post-operative therapy protocol including gait pattern and exercise program. Pre-operative instruction completed; await physical therapy orders after surgery. Treatment Goal Met: Yes Assessment Goals Acheived: I Ambulation w/ FWW, Understands P-op [place], I Post-op Exercises Charges/GCodes Time In: 1325 Time Out: 1335 Total Billed Treatment Time: 10 Total Billed Treatment 1 visit LUZMARIA FREEMAN PT Aug 15, 2022 13:46
--- NOTE | 2022-08-15 16:10 | Diagnostic Imaging Report ---
CLINICAL INDICATION: Preop chest x-ray for left total knee arthroplasty. EXAM: Chest x-ray PA and lateral views. COMPARISON: Chest x-ray dated 01/06/2018. FINDINGS: Lungs/pleura: Lungs are clear. There is no pneumothorax. There is no pleural effusion. Mediastinum: Unremarkable. Pulmonary vasculature: Unremarkable. Heart: Unremarkable. Bones/extrathoracic soft tissue: There are hypertrophic spurs involving the thoracic spine. IMPRESSION: There is with no radiographic evidence of acute cardiopulmonary process. Dictated by: Dictated on workstation # [id number]
[2022-08-15] MEDS ORDERED: CELE100C PO (18:42)
[2022-08-15] MEDS ORDERED: METO50TA7 PO (18:42)
== END 2022-08-15 18:58 ==
LOC: PREOP 12:01
PROVIDERS: ATTEND Orthopaedic Surgery
DX: Z01.818 Encounter for other preprocedural examination (principal); M17.12 Unilateral primary osteoarthritis, left knee
CPT/HCPCS: 36415; 71046; 80053; 81000; 82308; 85025; 85610; 85652; 86850; 86900; 86901; 87081; 93005

== ENCOUNTER 2022-08-22 07:17 | Inpatient (IN) | payer MEDICARE, OTHER ==
--- NOTE | 2022-08-10 19:05 | HISTORY AND PHYSICAL ---
DATE OF SERVICE: ADMISSION HISTORY AND PHYSICAL DATE OF ADMISSION: 08/22/2022. This will be for inpatient admission for left total knee arthroplasty on 08/22/2022. HISTORY OF PRESENT ILLNESS: The patient is a 67-year-old gentleman with complaints of progressively worsening left knee pain. Radiographs reveal severe lateral and patellofemoral arthrosis. He has undergone treatment with injections and arthroscopy without relief. Due to functional impairment and failure to improve with conservative measures, the patient elected to proceed with surgical intervention. REVIEW OF SYSTEMS: No chest pain, no shortness of breath, no dysuria. PAST SURGICAL HISTORY: Right total knee arthroplasty. PAST MEDICAL HISTORY: Benign prostatic hypertrophy. FAMILY HISTORY: Significant for ischemic heart disease. PRIMARY CARE PROVIDER: Dr. Person. MEDICATIONS: Alfuzosin, Finasteride, gabapentin, hydroxyzine, Viibryd, metoprolol, Celebrex. ALLERGIES: PENICILLIN, SULFA AND ASPIRIN. SOCIAL HISTORY: The patient is a current smoker. Denies alcohol use. PHYSICAL EXAMINATION: GENERAL: The patient is well-developed, well-nourished, in no acute distress. HEENT: Normocephalic, atraumatic. Pupils are equal, round and reactive to light. Oropharynx is clear. NECK: Supple, no lymphadenopathy. LUNGS: Clear to auscultation bilaterally. HEART: Regular rate and rhythm. ABDOMEN: Soft, nontender, nondistended. EXTREMITIES: The left knee demonstrates valgus alignment. Range of motion is 0/0/110. There is no varus valgus laxity. Negative anterior and posterior drawer. His patella tracks well. Mild effusions noted. IMPRESSION: Severe left knee osteoarthritis. PLAN: Left total knee arthroplasty. The risks, benefits, options, ramifications and recovery were discussed at length with the patient. He understands and wishes to proceed. Job ID: [id number] DocumentID: [id number] Dictated Date: 08/02/2022 11:31:56 Tank Truck Engine Mechanic Date: 08/02/2022 12:54:35 Dictated By: FRANC BELLO MD
[2022-08-22] VITALS (10 sets, daily range): BP systolic 120–142; BP diastolic 81–98
[~2022-08-22] VITALS: Ht 177.8 cm; Wt 114.0 kg
[~2022-08-22 07:17] MED LIST changes: +CELE100C PO; +METO50TA7 PO
[2022-08-22] MEDS ORDERED: ONDANSETRON 4 MG/2 ML (SDV) Z0FRAN IVP PRN ×2 (07:30→10:45)
[2022-08-22] MEDS ORDERED: diphenhydrAMINE 50 MG/ML INJ (BENADRYL) IVP PRN (07:30)
[2022-08-22] MEDS ORDERED: morphine PCA 100 MG/100 ML BAG IV PRN (07:30)
[2022-08-22] MEDS ORDERED: INTRA-ARTICULAR IU ONE ×5 (07:30)
--- NOTE | 2022-08-22 07:38 | Progress Note-Post Operative ---
Post-Operative Progess Note Surgeon (s)/Claim Benefit Specialist (s) Surgeon FRANC BELLO MD Claim Benefit Specialist: Laron Galo Pre-Operative Diagnosis left knee primary osteoarthritis Post-Operative Diagnosis left knee primary osteoarthritis Procedure & Operative Findings Date of Procedure 08/22/22 Procedure Performed/Findings left total knee arthroplasty Anesthesia Type GETA Estimated Blood Loss Estimated blood loss (mL): minimal Specimens/Packing Specimens Removed none Packing: none FRANC BELLO MD Aug 22, 2022 07:38
--- NOTE | 2022-08-22 07:38 | Progress Note-Pre Operative ---
Pre-Operative Progress Note Date of Available H&P: Aug 10, 2022 Date H&P Reviewed: Aug 22, 2022 Time H&P Reviewed: 07:11 Changes from last HP none Pre-Operative Diagnosis: left knee primary osteoarthritis FRANC BELLO MD Aug 22, 2022 07:37
--- NOTE | 2022-08-22 07:40 | D/C HH Face to Face Order ---
D/C Face to Face Orders Reconcile Patient Problems Problems Reviewed?: Yes Instructions for Patient Via [facility], Patient Instructions/FollowUp: three weeks Physician to follow Patient: three weeks Discharge Diet for Home: Regular Diet Patient Data-Allergies,Ht & Wt Patient Allergies: Coded Allergies: Penicillins (Unverified Allergy, Intermediate, HIVES/SWELLING, 01/06/18) Sulfa (Sulfonamide Antibiotics) (Verified Allergy, Intermediate, HIVES/SWELLING, 01/06/18) aspirin (Verified Allergy, Intermediate, HIVES/SWELLING, 01/06/18) Uncoded Allergies: FLU VACCINE (Allergy, Severe, Hives, 08/15/22) Height (Feet): 5 Height (Inches): 10.00 Weight (Pounds): 253 Weight (Ounces): 8.0 Home Health Need/Face to Face Date of Face to Face: Aug 22, 2022 Clinical Findings: Muscle weakness, Pain with ambulation, Unsteady gait I have seen Pt [id number]: Yes Discharged To: Home Diagnosis/Conditions: left total knee arthroplasty Patient is Homebound due to: Muscle weakness, Pain w/ambulation Homebound Status Due to the above stated illness, injury or surgical procedure (medical condition or diagnosis) and associated clinical findings, the patient is homebound because of his/her inability to leave home except with aid of a supportive device and/or person AND leaving the home requires a considerable and taxing effort or is medically contraindicated. Pt req the following assistanc: Walker Home Health Nursing Orders Home Health Services Order: Physical Therapy-Evaluate & Treat DC left knee eleno and apply steri strips 09/05/22 Therapy Orders Therapy Orders: Physical Therapy, PT to assess for OT Therapy Specific Orders: Eval assistive deivces, Teach enviro modificatio ns/safety, Gait training, Increase strength/endurance, Provider maintenance therapy, Restore ROM Certify Stmt I certify that this patient is under my care and that I, a nurse practitioner or a physician; a pastoral assistant working with me, had a face to face encounter that - meets the physician face to face encounter requirements with this patient as dated. FRANC BELLO MD Aug 22, 2022 07:40
[2022-08-22] MEDS ORDERED: ROPIVACAINE 5MG/ML 30ML VIAL ONE (08:12)
[2022-08-22] MEDS ORDERED: LIDOCAINE PF 2% 5 ML (XYLOCAINE) VIAL ONE (08:12)
[2022-08-22] MEDS ORDERED: MIDAZOLAM 2 MG/2 ML (VERSED) VIAL ONE (08:12)
[2022-08-22] MEDS: LACTATED RINGERS 1,000 ML IV PRN ×2 (08:37→09:30)
[2022-08-22] MEDS ORDERED: CLINDAMYCIN 900 MG/50 ML IVPB 50 ML IV ONE ×2 (08:44→08:45)
[2022-08-22] MEDS ORDERED: fentaNYL INJ 100 MCG/2 ML AMP ONE (08:55)
[2022-08-22] MEDS ORDERED: SENNA W/DOCUSATE (SENOKOT S) TABLET PO SCH (09:00)
[2022-08-22] MEDS ORDERED: proPOfol 200 MG/20 ML (DIPRIVAN) VIAL IV ONE ×2 (09:08→10:22)
[2022-08-22] MEDS ORDERED: TRANEXAMIC ACID 100 MG/ML 10 ML INJECTION ONE (09:12)
[2022-08-22] MEDS ORDERED: ONDANSETRON 4 MG/2 ML (SDV) Z0FRAN ONE (10:23)
[2022-08-22] MEDS ORDERED: SEVOFLURANE (ULTANE) 15 ML INHAL SOLN ONE (10:23)
[2022-08-22] MEDS ORDERED: fentaNYL INJ 100 MCG/2 ML AMP IVP ONE (10:45)
--- NOTE | 2022-08-22 11:21 | Progress Note ---
Standard Progress Note Progress Notes/Assess & Plan Date Seen by a Provider: Aug 22, 2022 Time Seen by a Provider: 11:20 Progress/Assessment & Plan post op check no complaints radiographs--HW well positioned without fracture small bony fragment posteriorly LLE--intact DF and PF of toes and ankle 2plus DP pulse with brisk cap refill intact sensation to light touch throughout s/p LTKA mobilize as able FRANC BELLO MD Aug 22, 2022 11:21
[2022-08-22] MEDS: NS IV 1000 ML 1,000 ML IV SCH ×2 (13:13→18:02)
--- NOTE | 2022-08-22 14:48 | Physical Therapy Evaluation ---
PT Evaluation-General Medical Diagnosis Admission Date Aug 22, 2022 at 07:17 Medical Diagnosis: L TKA Onset Date: Aug 22, 2022 Therapy Diagnosis Therapy Diagnosis: Impaired Mobility Height/Weight Height (Feet): 5 Height (Inches): 10.00 Weight (Pounds): 253 Weight (Ounces): 8.0 Precautions Precautions/Isolations: Fall Prevention, Standard Precautions Weight Bear Status Right Lower Extremity: Right Full Weight Bearing Left Lower Extremity: Left Weight Bearing/Tolerated Referral Physician: Iraj Reason for Referral: Evaluation/Treatment Medical History Pertinent Medical History: HTN Additional Medical History Benign prostatic hypertrophy. Reviewed History: Yes Social History Home: [facility] Current Living Status: Significant Other PT Steps Into Home: 3 PT Steps Inside Home: 2 Prior Prior Level of Function SCALE: Activities may be completed with or without assistive devices. 3-Hdapeqbocj-cbubgni completes the activity by him/herself with no assistance from a helper. 5-Set-up or Clean-up Assistance-helper sets up or cleans up; patient completes activity. [place] assists only prior to or following the activity. 4-Supervision or Touching Assistance-helper provides verbal cues and/or gabby kuldeep/steadying and/or contact guard assistance as patient completes activity. Assistance may be provided throughout the activity or intermittently. 3-Partial/Moderate Assistance-helper does LESS THAN HALF the effort. [place] lifts, holds or supports trunk or limbs, but provides less than half the effort. 2-Substantial/Maximal Assistance-helper does MORE THAN HALF the effort. [place] lifts or holds trunk or limbs and provides more than half the effort. 8-Elroyxwgc-jifncv does ALL the effort. Patient does none of the effort to complete the activity. Or, the assistance of 2 or more helpers is required for the patient to complete the activity. If activity was not attempted, code reason: 7-Patient Refused. 9-Not Applicable-not attempted and the patient did not perform the activity before the current illness, exacerbation or injury. 10-Not Attempted due to Environmental Limitations-(lack of equipment, weather restraints, etc.). 88-Not Attempted due to Medical Conditions or Safety Concerns. Bed Mobility: 6 Transfers (B,C,W/C): 6 Gait: 6 Stairs: 6 Indoor Mobility (Ambulation): Independent Stairs: Independent Prior Devices Use: None PT Evaluation-Current Subjective Patient in bed pre-tx, reports pain 2/10 in R knee and 8/10 headache, agrees to PT. Pt/Family Goals Be independent at home. Objective Patient Orientation: Person, Place, Situation Attachments: Polar Pack, IV ROM/Strength ROM Lower Extremities RLE WFL, LLE Knee diminished due to recent TKA and swelling. Strength Lower Extremities LLE deferred due to recent TKA, RLE (hip flexion 5/5, knee flexion 5/5, knee extension 5/5, DF 5/5) Neuromuscular (Tone, Coordination, Reflexes) Coordination intact Sensory Vision: Functional Hearing: Functional Sensation Right Lower Extremit: Intact Sensation Left Lower Extremity: Impaired Transfers Roll Left to Right (QC): 4 (SBA) Sit to Lying (QC): 4 (SBA) Lying to Sitting/Side of Bed(Q: 4 (SBA) Sit to Stand (QC): 3 (Min A) Gait Does the Patient Walk?: Yes Mode of Locomotion: Walk Anticipated Mode of Locomotion: Walk Walk 10 feet (QC): 4 Walk 50 ft with 2 Turns(QC): 4 Walk 150 ft (QC): 4 Distance: 150' Gait Assistive Device: FWW Comments/Gait Description CGA with all ambulation, Patient walks with decreased gait speed, step length, and foot clearance. Patient requires several breaks due to increased pain with activity. Balance Sitting Static: Normal Sitting Dynamic: Normal Standing Static: Normal Standing Dynamic: Fair Treatment Ambulation, LE Strengthening (AP x10, SAQ x10, Heel Slides x10, Quad Sets x10, SLR x10) Assessment/Needs Patient eager to do PT since already had a previous TKA on other knee. Patient L knee swollen and stiff, but moved better after ambulating and exercising. Patient in bed post-tx with polar pack on, tray, nurse call, phone, taken to the bathroom , nurse notified about IV alarm, all needs met. Rehab Potential: Fair PT Prints And Drawings Curator Goals Prints And Drawings Curator Goals PT Senior Care Goals Time Frame: Aug 29, 2022 Roll Left & Right (QC): 6 Sit to Lying (QC): 6 Lying-Sitting on Side/Bed(QC): 6 Sit to Stand (QC): 6 Chair/Srm-qh-Ylfli Xfer(QC): 6 Walk 10 feet (QC): 6 Walk 50ft with 2 Turns (QC): 6 Walk 150 ft (QC): 6 PT Plan Problem List Problem List: Activity Tolerance, Functional Strength, Safety, Balance, Gait, Transfer, Bed Mobility, ROM Treatment/Plan Treatment Plan: Continue Plan of Care Treatment Plan: Bed Mobility, Education, Functional Activity Jose, Functional Strength, Gait, Safety, Therapeutic Exercise, Transfers Treatment Duration: Aug 29, 2022 Frequency: 11 times per week Estimated Hrs Per Day: .25 hour per day Patient and/or Family Agrees t: Yes Safety Risks/Education Patient Education: Gait Training, Transfer Techniques, Correct Positioning, Safety Issues Teaching Recipient: Patient Teaching Methods: Demonstration, Discussion Response to Teaching: Reinforcement Needed Discharge Recommendations Plan Patient will perform endurance and balance training, bed mobility and transfer training, gait training and functional strengthening in order to become more independent at home. Therapy Discharge Recommendati: Home & Family, Post Acute PT Time Time In: 1345 Time Out: 1412 DATE: Aug 22, 2022 Total Billed Treatment Time: 27 Total Billed Treatment 1 visit EVL 10min FA 17min LUZMARIA QUINTANA PT Aug 22, 2022 14:48
--- NOTE | 2022-08-22 15:07 | Diagnostic Imaging Report ---
HISTORY: Left total knee arthroplasty. COMPARISON: None. TECHNIQUE: Two views of the left knee. FINDINGS: There is a left total knee arthroplasty. There is intra-articular air and fluid, and there is soft tissue edema and air about the left knee. Skin eleno are seen anteriorly. No hardware complication is seen. Alignment is normal. No acute fracture is seen. IMPRESSION: 1. Left total knee arthroplasty with no immediate hardware complication seen. Dictated by: Dictated on workstation # [id number]
[2022-08-22] MEDS ORDERED: CETI-458 PO (15:11)
[2022-08-22] MEDS ORDERED: GABA-490 PO (15:11)
[2022-08-22] MEDS ORDERED: CELE100C84 PO (15:11)
[2022-08-22] MEDS ORDERED: HYDR-3584 PO (15:11)
[2022-08-22] MEDS: CLINDAMYCIN 900 MG/50 ML IVPB 50 ML IV SCH (16:22)
[2022-08-22] MEDS ORDERED: [UNRECOGNIZED DRUG - REMARK] PO PRN (17:45)
[2022-08-22] MEDS ORDERED: LORATADINE (CLARITIN) 10 MG TAB PO PRN (18:00)
--- NOTE | 2022-08-22 19:26 | OPERATIVE REPORT ---
DATE OF SERVICE: 08/22/2022 PREOPERATIVE DIAGNOSIS: Left knee primary osteoarthritis. POSTOPERATIVE DIAGNOSIS: Left knee primary osteoarthritis. PROCEDURE: Left total knee arthroplasty. SURGEON: Dr. Bello. COMMERCIAL TRUCK DRIVER: Laron Galo, who assisted throughout the procedure and closed the incision. ANESTHESIA: General endotracheal by Hanna German CRNA. TOURNIQUET TIME: 70 minutes at 300 mmHg. ESTIMATED BLOOD LOSS: Minimal. DRAINS: None. COMPLICATIONS: None. POSTOPERATIVE PLAN: Routine protocol. MATERIALS: MicroPort cemented size 7 femur, cemented size 8 tibia with 10 mm insert and cemented size 32 patella. STATEMENT OF MEDICAL NECESSITY: The patient is a 67-year-old gentleman with longstanding progressive left knee pain. Radiographs revealed severe lateral and patellofemoral arthrosis. He is undergoing treatment with injections, arthroscopy and anti-inflammatories without relief. Due to functional impairment, failure to improve with conservative measures, the patient elected to proceed with surgical intervention. DESCRIPTION OF PROCEDURE: After risks and benefits of procedure were discussed and questions were answered and informed consent was signed and placed on the chart, the operative site was confirmed in the preoperative holding area initialed by surgeon. The patient was then transported to the operating room and after adequate level of general endotracheal anesthetic was obtained, timeout was called, confirming the operative site. The left lower extremity was prepped and draped in the usual sterile fashion with the leg elevated and the knee flexed, tourniquet was inflated to 300 mmHg. Standard anterior approach was utilized. Hemostasis was obtained with cautery. Medial parapatellar arthrotomy was performed, leaving a 1 cm cuff on the patella for later reattachment. Portion of the fat pad was resected. A subperiosteal release was performed in the proximal medial tibia and the ACL was resected. The custom block was placed distally and had excellent coverage. This was then pinned into position and the distal cut was made. The 7 cutting block was then placed parallel to the epicondylar axis at the previously placed drill holes. Cuts were made from posterior to anterior. Subperiosteal release was then carefully performed on the posterior distal femur, being careful to stay on the bony surface. The tibial block was then placed and had excellent coverage. This was pinned into position. The cut was made. The 8 trial was placed. The drop lizzie transected to the intermalleolar axis which was then prepared with the drill and keel punch. The femoral trial was placed. The femoral trochlear cut was made. The patella was prepared by resecting 10 mm off the undersurface and the peg guide was placed. Peg holes were drilled. The 32 trial was placed. A 10 mm insert was placed and the knee was taken through range of motion. The patella tracked well. The knee was stable to anterior/posterior and medial/lateral stress in flexion and extension. The patient had full extension with flexion to approximately 120 degrees. The trials were removed. The joint was irrigated with pulse lavage. The bone ends were irrigated with pulse lavage as well. The periarticular block was placed in the posterior capsule, medial and lateral retinaculum, extensor mechanism, and subcutaneous tissues. The bone ends were further irrigated and dried. The tibial baseplate was cemented into position. Excess cement was removed. The superior surface was irrigated and dried and the polyethylene insert was placed. Distal femur was irrigated and dried and the femoral prosthesis was cemented into position. Excessive cement was removed. The knee was brought in full extension while the cement cured. The undersurface of the patella was irrigated and dried and the patellar button was cemented into position. Excessive cement was removed. The knee was held in position until the cement had cured. Once the cement had cured, the knee was taken through range of motion. Full extension was easily obtained 120 degrees of flexion with gravity was easily obtained. There was no anterior/posterior or medial/lateral laxity in flexion or extension and the patella tracked well. The joint was further irrigated with pulse lavage. The arthrotomy was closed with #2 Tevdek in dbchcm-cb-rmujg interrupted fashion. The knee was flexed. Repair was stable. Subcutaneous tissues were irrigated and dried. A 0 Vicryl was used for deep subcutaneous tissue, 2-0 Vicryl for the superficial subcutaneous tissue, eleno used on the skin. A soft dressing was applied. The tourniquet was deflated and the patient was transferred to recovery room awake and in stable condition. Job ID: [id number] DocumentID: [id number] Dictated Date: 08/22/2022 10:39:48 Spreading Machine Operator Date: 08/22/2022 19:24:00 Dictated By: FRANC BELLO MD
[2022-08-22] MEDS: GABAPENTIN 400 MG (NEURONTIN) CAP PO SCH (20:18)
[2022-08-22] MEDS: SENNA W/DOCUSATE (SENOKOT S) TABLET PO SCH (20:18)
[2022-08-22] MEDS: hydrOXYzine (ATARAX) 10 MG TAB PO SCH (20:18)
[2022-08-22] MEDS: oxyCODONE/APAP 5/325MG (PERCOCET 5) TABLET PO PRN (20:21)
[2022-08-23] VITALS (7 sets, daily range): BP systolic 106–129; BP diastolic 55–85
[2022-08-23] MEDS: CLINDAMYCIN 900 MG/50 ML IVPB 50 ML IV SCH (00:55)
[2022-08-23] MEDS: NS IV 1000 ML 1,000 ML IV SCH ×2 (03:27→15:20)
[2022-08-23 05:41] LABS: HEMOGLOBIN 12.3 g/dL (13.3-17.7)
[2022-08-23] MEDS: oxyCODONE/APAP 5/325MG (PERCOCET 5) TABLET PO PRN ×4 (05:46→20:48)
[2022-08-23] MEDS: MULTIVIT W/MINERALS TAB (THERAGRAN M) PO SCH (05:46)
--- NOTE | 2022-08-23 07:45 | Progress Note ---
Standard Progress Note Progress Notes/Assess & Plan Date Seen by a Provider: Aug 23, 2022 Time Seen by a Provider: 07:44 Progress/Assessment & Plan post op check no complaints radiographs--HW well positioned without fracture small bony fragment posteriorly LLE--intact DF and PF of toes and ankle 2plus DP pulse with brisk cap refill intact sensation to light touch throughout s/p LTKA mobilize as able Final Diagnosis no complaints Vital Signs Date Time Temp Pulse Resp B/P (MAP) Pulse Ox O2 Delivery O2 Flow Rate FiO2 08/23/22 07:35 36.1 66 18 125/73 (90) 95 Room Air 08/23/22 05:11 18 08/23/22 03:30 36.2 58 18 114/75 (88) 96 Room Air 08/23/22 00:04 36.0 54 16 106/55 (72) 94 Room Air 08/22/22 20:00 Room Air 08/22/22 19:19 36.9 71 20 128/86 (100) 92 Room Air 08/22/22 15:46 36.7 66 18 135/83 (100) 95 Room Air 08/22/22 11:56 36.0 56 18 134/85 (101) 95 Room Air 08/22/22 11:30 Room Air 08/22/22 11:30 Room Air 08/22/22 11:20 36.2 11 137/93 (108) 96 Room Air 08/22/22 11:10 12 133/97 (109) 100 OxyMask 10.00 08/22/22 11:05 OxyMask 10.00 08/22/22 11:00 12 142/93 (109) 100 OxyMask 10.00 08/22/22 10:50 OxyMask 10.00 08/22/22 10:50 12 128/98 (108) 100 OxyMask 10.00 08/22/22 10:40 14 120/81 (94) 100 OxyMask 10.00 08/22/22 10:37 OxyMask 10.00 08/22/22 10:37 36.2 18 120/97 (105) 100 OxyMask 10.00 I & O 08/23/22 07:00 Intake Total 4040 ml Balance 4040 ml Laboratory Tests Test 08/23/22 05:12 Range/Units Hemoglobin 12.3 L 13.3-17.7 g/dL Hematocrit 38 L 40-54 % LLE--dressing intact NVI distally no calf tenderness s/p LTKA doing well PT/OT FRANC BELLO MD Aug 23, 2022 07:45
[2022-08-23] MEDS: GABAPENTIN 400 MG (NEURONTIN) CAP PO SCH ×2 (08:32→20:47)
[2022-08-23] MEDS: hydrOXYzine (ATARAX) 10 MG TAB PO SCH ×2 (08:32→20:47)
[2022-08-23] MEDS: meTOproloL SUCCINATE 50 MG (TOPROL XL) TAB PO SCH (08:32)
[2022-08-23] MEDS: CELECOXIB 100 MG (CeleBREX) CAP PO SCH (08:32)
[2022-08-23] MEDS: SENNA W/DOCUSATE (SENOKOT S) TABLET PO SCH ×2 (08:33→20:48)
[2022-08-23] MEDS: FINASTERIDE (PROSCAR) 5 MG TAB PO SCH (08:33)
[2022-08-23] MEDS: NON-FORMULARY MEDICATION 1 EA EA (Vilazodone Hydrochloride (Viibryd) 40 MG) PO SCH (08:33)
[2022-08-23] MEDS: ENOXAPARIN INJECTION 30 MG/0.3 ML SYR SC SCH ×2 (08:33→20:51)
--- NOTE | 2022-08-23 08:46 | Consultation ---
History of Present Illness History of Present Illness Patient Consulted On(abhishek/time) 08/23/22 08:46 Allergies and Home Medications Allergies Coded Allergies: Penicillins (Verified Allergy, Intermediate, HIVES/SWELLING, 08/22/22) Sulfa (Sulfonamide Antibiotics) (Verified Allergy, Intermediate, HIVES/SWELLING, 08/22/22) aspirin (Verified Allergy, Intermediate, HIVES/SWELLING, 08/22/22) Uncoded Allergies: FLU VACCINE (Allergy, Severe, Hives, 08/15/22) Patient Home Medication List Alfuzosin HCl (Alfuzosin HCl ER) 10 Mg Tab.er.24h, 10 MG PO DAILY, (Reported) Entered as Reported by: SUZY POWELL on 01/06/181316 Last Action: Converted Celecoxib (Celecoxib) 100 Mg Capsule, 200 MG PO DAILY, (Reported) Entered as Reported by: DAYSI MIRANDA on 08/22/221510 Last Action: Continued Cetirizine HCl (Allergy Relief) 10 Mg Tablet, 10 MG PO DAILY PRN for ALLERGY SYMPTOMS, (Reported) Entered as Reported by: DAYSI MIRANDA on 08/22/221510 Last Action: Converted Finasteride (Finasteride) 5 Mg Tablet, 5 MG PO DAILY, (Reported) Entered as Reported by: SUZY POEWLL on 01/06/181316 Last Action: Continued Gabapentin (Gabapentin) 400 Mg Capsule, 400 MG PO DAILY, (Reported) Entered as Reported by: SUZY POWELL on 01/06/181316 Last Action: Continued Gabapentin (Gabapentin) 400 Mg Capsule, 800 MG PO HS, (Reported) Entered as Reported by: DAYSI MIRANDA on 08/22/221510 Last Action: Continued Hydroxyzine HCl (Hydroxyzine HCl) 10 Mg Tablet, 10 MG PO DAILY, (Reported) Entered as Reported by: SUZY POWELL on 01/06/181316 Last Action: Continued Hydroxyzine HCl (Hydroxyzine HCl) 10 Mg Tablet, 20 MG PO HS, (Reported) Entered as Reported by: DAYSI MIRANDA on 08/22/221510 Last Action: Continued Metoprolol Succinate (Metoprolol Succinate) 50 Mg Tab.er.24h, 50 MG PO DAILY, (Reported) Entered as Reported by: SEUN ROYAL on 08/15/221841 Last Action: Continued Vilazodone Hydrochloride (Viibryd) 40 Mg Tablet, 40 MG PO DAILY, (Reported) Entered as Reported by: SUZY POWELL on 01/06/18 1317 Last Action: Converted Discontinued Medications Celecoxib (Celebrex) 100 Mg Capsule, 100 MG PO BID, (Reported) Discontinued Reason: Duplicate Order Entered as Reported by: SEUN ROYAL on 08/15/221841 Last Action: Discontinued Past Mnlkhkl-Inulns-Cjwxde Hx Patient Social History Tobacco Use?: Yes Tobacco type used: Cigarettes Smoking Status: Current Everyday Smoker Use of E-Cig and/or Vaping dev: No Substance use?: No Alcohol Use?: Yes Alcohol type: Beer Alcohol Frequency: Rarely Pt feels they are or have been: No Immunizations Up To Date First/Initial COVID19 Vaccinat: 2020 Second COVID19 Vaccination Abhishek: 2021 Tetanus Booster (TDap): Unknown PED Vaccines UTD: No Seasonal Allergies Seasonal Allergies: Yes Current Status Advance Directives: No Communicates: Verbally Primary Language: Kenyan Sensory deficits: Vision impairment Additional sensory deficits: Readers Implanted or Applied Medical D: None Past Medical History Surgeries: Orthopedic Sexually Transmitted Disease: No HIV/AIDS: No Benign Prostatic Hyperpl, Prostate Problems Arthritis Loss of Vision: Denies Hearing Impairment: Denies Did You Recieve Any Treatments: Yes What Type of Treatment Did You: Surgical Intervention Anxiety, Depression Blood Disorders: No Adverse Reaction/Blood Tranf: No (N/A) Family Medical History Hypertension Physical Exam Vital Signs Vital Signs - First Documented Capillary Refill : Less Than 3 Seconds Height, Weight, BMI Height: 5'10.00" Weight: 253lbs. 8.0oz. [id number]; 36.06 BMI Method: BRYANT VILLEGAS MD Aug 23, 2022 08:46
[2022-08-23] MEDS ORDERED: NON-FORMULARY MEDICATION 1 EA EA (Alfuzosin HCl (Alfuzosin HCl ER) 10 MG) PO SCH (09:00)
--- NOTE | 2022-08-23 09:56 | Physical Therapy Daily Note ---
PT Daily Note-Current Subjective Patient in bed pre-tx with polar pack on, reports no pain at rest, agrees to PT. Pain Section J - Health Conditions 1. Rarely or not at all 2. Occasionally 3. Frequently 4. Almost constantly 8. Unable to answer Pain Effect on Sleep: 1 Pain Interference with Therapy: 1 Pain Interference w/Day-to-Day: 1 Appearance Patient in recliner post-tx with nurse call, phone, tray, polar pack, all needs met. Mental Status Patient Orientation: Person, Place, Situation Attachments: Polar Pack, IV Transfers SCALE: Activities may be completed with or without assistive devices. 2-Qkjsjzgojr-lpfpjho completes the activity by him/herself with no assistance from a helper. 5-Set-up or Clean-up Assistance-helper sets up or cleans up; patient completes activity. [place] assists only prior to or following the activity. 4-Supervision or Touching Assistance-helper provides verbal cues and/or gabby kuldeep/steadying and/or contact guard assistance as patient completes activity. Assistance may be provided throughout the activity or intermittently. 3-Partial/Moderate Assistance-helper does LESS THAN HALF the effort. [place] lifts, holds or supports trunk or limbs, but provides less than half the effort. 2-Substantial/Maximal Assistance-helper does MORE THAN HALF the effort. [place] lifts or holds trunk or limbs and provides more than half the effort. 9-Zdsgjdres-dikurm does ALL the effort. Patient does none of the effort to complete the activity. Or, the assistance of 2 or more helpers is required for the patient to complete the activity. If activity was not attempted, code reason: 7-Patient Refused. 9-Not Applicable-not attempted and the patient did not perform the activity before the current illness, exacerbation or injury. 10-Not Attempted due to Environmental Limitations-(lack of equipment, weather restraints, etc.). 88-Not Attempted due to Medical Conditions or Safety Concerns. Roll Left & Right (QC): 4 Sit to Lying (QC): 4 Lying to Sitting/Side of Bed(Q: 4 Sit to Stand (QC): 4 Chair/Ksx-le-Zujzp Xfer(QC): 4 Weight Bearing Right Lower Extremity: Right Full Weight Bearing Left Lower Extremity: Left Weight Bearing/Tolerated Gait Training Does the Patient Walk?: Yes Distance: 250' Walk 10 feet (QC): 4 Walk 50 ft with 2 Turns(QC): 4 Walk 150 ft (QC): 4 Gait Persons Needed: 1 Gait Assistive Device: FWW Patient SBA with ambulation, needed verbal cueing to walk more naturally without a limp. Patient has better gait speed, better step length, and better foot clearance. Exercises Supine Ex: Quad Set, Heel Slides, Straight leg raise Supine Reps: 20 Seated Therapy Exercises: Ankle pumps, Long arc quads Seated Reps: 20 Treatments GT, LE Strengthening Assessment Current Status: Fair Progress Patient has less pain and better gait today. Patient taken to the bathroom pre- tx and able to complete exercises without increasing pain much at all. PT Private Mortgage Banker Safe Goals Skilled Nursing Goals PT Skilled Nursing Goals Time Frame: Aug 29, 2022 Roll Left & Right (QC): 6 Sit to Lying (QC): 6 Lying-Sitting on Side/Bed(QC): 6 Sit to Stand (QC): 6 Chair/Bdo-qh-Vxxrr Xfer(QC): 6 Walk 10 feet (QC): 6 Walk 50ft with 2 Turns (QC): 6 Walk 150 ft (QC): 6 PT Plan Problem List Problem List: Activity Tolerance, Functional Strength, Safety, Balance, Gait, Transfer, Bed Mobility, ROM Treatment/Plan Treatment Plan: Continue Plan of Care Treatment Plan: Bed Mobility, Education, Functional Activity Jose, Functional Strength, Gait, Safety, Therapeutic Exercise, Transfers Treatment Duration: Aug 29, 2022 Frequency: 11 times per week Estimated Hrs Per Day: .5 hour per day Patient and/or Family Agrees t: Yes Safety Risks/Education Patient Education: Gait Training, Transfer Techniques, Correct Positioning, Safety Issues Teaching Recipient: Patient Teaching Methods: Demonstration Response to Teaching: Reinforcement Needed Time Time In: 0837 Time Out: 903 DATE: Aug 23, 2022 Total Billed Treatment Time: 27 Total Billed Treatment 1 visit GT 15min EX 12min PAT BLACKWELL PT Aug 23, 2022 09:56
--- NOTE | 2022-08-23 11:56 | Occupational Therapy Eval ---
OT Evaluation-General/PLF Medical Diagnosis Admission Date Aug 22, 2022 at 07:17 Medical Diagnosis: L TKA Onset Date: Aug 22, 2022 Therapy Diagnosis Therapy Diagnosis: N/A Height/Weight Height (Feet): 5 Height (Inches): 10.00 Weight (Pounds): 253 Weight (Ounces): 8.0 Precautions Precautions/Isolations: Standard Precautions Referral Physician: Iraj Referral Reason: Evaluation/Treatment Medical History Pertinent Medical History: HTN Current History Pt is s/p L TKA (08/22/22). Pt lives alone in a multilevel home. His 2 sons will be coming to live with him for the next few weeks to assist with anything he needs. Pt was independent with all ADLs/IADLs prior to surgery. He used a cane on occasion. He is able to live on the main level and not travel to the second story of the house. Reviewed History: Yes Social History Home: Multilevel Current Living Status: Alone Steps Into Home: 3 Steps Inside Home: 2 ADL-Prior Level of Function SCALE: Activities may be completed with or without assistive devices. 5-Zemogwlyyv-amypoqu completes the activity by him/herself with no assistance from a helper. 5-Set-up or Clean-up Assistance-helper sets up or cleans up; patient completes activity. [place] assists only prior to or following the activity. 4-Supervision or Touching Assistance-helper provides verbal cues and/or touching/steadying and/or contact guard assistance as patient completes a ctivity. Assistance may be provided throughout the activity or intermittently. 3-Partial/Moderate Assistance-helper does LESS THAN HALF the effort. [place] lifts, holds or supports trunk or limbs, but provides less than half the effort. 2-Substantial/Maximal Assistance-helper does MORE THAN HALF the effort. [place] lifts or holds trunk or limbs and provides more than half the effort. 0-Zaetefyix-wvkdgr does ALL the effort. Patient does none of the effort to complete the activity. Or, the assistance of 2 or more helpers is required for the patient to complete the activity. If activity was not attempted, code reason: 7-Patient Refused. 9-Not Applicable-not attempted and the patient did not perform the activity before the current illness, exacerbation or injury. 10-Not Attempted due to Environmental Limitations-(lack of equipment, weather restraints, etc.). 88-Not Attempted due to Medical Conditions or Safety Concerns. Self Care: Independent Functional Cognition: Independent DME/Equipment: Grab Bars, Shower Drive Self: Yes OT Current Status Subjective Pt sitting in recliner upon arrival. He agrees to therapy eval. Appearance Pt was left sitting in recliner with all needs within reach. Mental Status/Objective Patient Orientation: Person, Place, Time, Situation Attachments: IV Current Glasses/Contacts: Yes (readers) Hearing Aids: No Hand Dominance: Right Upper Extremity ROM WNL Upper Extremity Strength 5/5 at shoulders ADL-Treatment Lower Body Dressing (QC): 5 (per pt) On/Off Footwear (QC): 6 (per pt- he always uses a sock aide) Sit<>stand: SBA. Pt uses AE at home at baseline and doesn't foresee needing any OT services at this time. He reported he feels comfortable with his son's helping as needed but also doesnt see any concerns once returning home with any self-care tasks. Education given on importance of a shower chair, although pt declines needing one and thinks he will be fine. Education also given about covering his knee dressing with any bathing tasks once at home. He reports he remembers that from last time he had his L knee replaced. Pt declines needing OT services at this time, so pt will be d/c. Education OT Patient Education: Correct positioning, Energy conservation, Modified ADL techniques, Progress toward Goal/Update tx plan, Purpose of tx/functional activities, Reviewed precautions, Rehab process Teaching Recipient: Patient Teaching Methods: Demonstration, Discussion Response to Teaching: Verbalize Understanding, Return Demonstration OT Intermediate Goals Intermediate Goals 1=Demonstrate adherence to instructed precautions during ADL tasks. 2=Patient will verbalize/demonstrate understanding of assistive devices/modifications for ADL. 3=Patient will improve strength/tolerance for activity to enable patient to perform ADL's. OT Education/Plan Problem List/Assessment Assessment: No Skilled OT Needs ID'd Discharge Recommendations Plan/Recommendations: Discontinue OT Therapy Discharge Recommendati: Homemaker Support, Home & Family Equpiment Recommendations-D/C: Bath Chair Treatment Plan/Plan of Care Treatment,Training & Education: Yes Patient would benefit from OT for education, treatment and training to promote independence in ADL's, mobility, safety and/or upper extremity function for ADL's. Plan of Care: ADL Retraining, Functional Mobility Treatment Duration: Aug 23, 2022 Frequency: 1 time per week Estimated Hrs Per Day: .25 hour per day Agreement: Yes Rehab Potential: Fair Time Start Time: 11:22 Stop Time: 11:33 DATE: Aug 23, 2022 Total Time Billed (hr/min): 11 Billed Treatment Time 1 visit India Cortes OT Aug 23, 2022 11:56
--- NOTE | 2022-08-23 12:29 | Anesthesia-General Post-Op ---
General Patient Condition Mental Status/LOC: Same as Preop Cardiovascular: Satisfactory Nausea/Vomiting: Absent Respiratory: Satisfactory Pain: Controlled Complications: Absent Post Op Complications Complications None Follow Up Care/Instructions Patient Instructions None needed. Anesthesia/Patient Condition Patient Condition Patient is doing well, no complaints, stable vital signs, no apparent adverse anesthesia problems. No complications reported per nursing. NADEEM ESPOSITO CRNA Aug 23, 2022 12:29
--- NOTE | 2022-08-23 15:22 | Physical Therapy Daily Note ---
PT Daily Note-Current Subjective Patient in recliner pre-tx, reports no pain, agrees to PT, Pain Section J - Health Conditions 1. Rarely or not at all 2. Occasionally 3. Frequently 4. Almost constantly 8. Unable to answer Pain Effect on Sleep: 1 Pain Interference with Therapy: 1 Pain Interference w/Day-to-Day: 1 Appearance Patient in recliner post-tx with nurse call, phone, tray, all needs met. Mental Status Patient Orientation: Person, Place, Situation Transfers SCALE: Activities may be completed with or without assistive devices. 0-Ewcmqppdnb-kdoubrk completes the activity by him/herself with no assistance from a helper. 5-Set-up or Clean-up Assistance-helper sets up or cleans up; patient completes activity. [place] assists only prior to or following the activity. 4-Supervision or Touching Assistance-helper provides verbal cues and/or touching/steadying and/or contact guard assistance as patient completes activity. Assistance may be provided throughout the activity or intermittently. 3-Partial/Moderate Assistance-helper does LESS THAN HALF the effort. [place] lifts, holds or supports trunk or limbs, but provides less than half the effort. 2-Substantial/Maximal Assistance-helper does MORE THAN HALF the effort. [place] lifts or holds trunk or limbs and provides more than half the effort. 9-Udjxtrvrn-hmpkyf does ALL the effort. Patient does none of the effort to complete the activity. Or, the assistance of 2 or more helpers is required for the patient to complete the activity. If activity was not attempted, code reason: 7-Patient Refused. 9-Not Applicable-not attempted and the patient did not perform the activity before the current illness, exacerbation or injury. 10-Not Attempted due to Environmental Limitations-(lack of equipment, weather restraints, etc.). 88-Not Attempted due to Medical Conditions or Safety Concerns. Sit to Stand (QC): 4 SBA Weight Bearing Right Lower Extremity: Right Full Weight Bearing Left Lower Extremity: Left Weight Bearing/Tolerated Gait Training Does the Patient Walk?: Yes Distance: 500' Walk 10 feet (QC): 4 Walk 50 ft with 2 Turns(QC): 4 Walk 150 ft (QC): 4 Gait Persons Needed: 1 Gait Assistive Device: FWW Patient still walks with mild antalgic gait on L knee, working on gait speed, foot clearance, and step length that is progressing each session. Exercises Supine Ex: Quad Set (5 sec hold ), Heel Slides, Straight leg raise Supine Reps: 15 Seated Therapy Exercises: Ankle pumps, Long arc quads Seated Reps: 15 Treatments GT, LE Strengthening Assessment Current Status: Fair Progress Patient is SBA with all transfers and ambulation. Patient continues to put more weight on L knee and pain increases slightly with activity. Patient has good endurance as well. 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 PT Fpc Goals Time Frame: Aug 29, 2022 Roll Left & Right (QC): 6 Sit to Lying (QC): 6 Lying-Sitting on Side/Bed(QC): 6 Sit to Stand (QC): 6 Chair/Mfy-qh-Nekzx Xfer(QC): 6 Walk 10 feet (QC): 6 Walk 50ft with 2 Turns (QC): 6 Walk 150 ft (QC): 6 PT Plan Problem List Problem List: Functional Strength, Safety, Balance, Gait, Transfer, Bed Mobility, ROM Treatment/Plan Treatment Plan: Continue Plan of Care Treatment Plan: Bed Mobility, Education, Functional Activity Jose, Functional Strength, Gait, Safety, Therapeutic Exercise, Transfers Treatment Duration: Aug 29, 2022 Frequency: 11 times per week Estimated Hrs Per Day: .5 hour per day Patient and/or Family Agrees t: Yes Safety Risks/Education Patient Education: Gait Training, Transfer Techniques, Correct Positioning, Safety Issues Teaching Recipient: Patient Teaching Methods: Demonstration, Discussion Response to Teaching: Reinforcement Needed Discharge Recommendations Therapy Discharge Recommendati: Home & Family, Post Acute PT Time Time In: 1419 Time Out: 1437 DATE: Aug 23, 2022 Total Billed Treatment Time: 18 Total Billed Treatment 1 visit FA 18min PAT BLACKWELL PT Aug 23, 2022 15:22
[2022-08-23] MEDS ORDERED: TAMSULOSIN 0.4 MG (FLOMAX) CAP PO SCH (18:00)
--- NOTE | 2022-08-23 19:35 | DISCHARGE SUMMARY ---
DISCHARGE DATE: 08/24/2022. DISCHARGE DIAGNOSES: 1. Left knee primary osteoarthritis. 2. Benign prostatic hypertrophy. PROCEDURES: Left total knee arthroplasty. SUMMARY OF HOSPITAL COURSE: The patient is a 67-year-old gentleman who underwent a left total knee arthroplasty the day of admission. Postoperatively, he did well. At the time of discharge, his wound was clean and dry. No calf tenderness. Negative Homans sign. CONDITION AT DISCHARGE: Good. DISCHARGE DIET: Regular. Followup is in 3 weeks. Home physical therapy has been arranged. DISCHARGE MEDICATIONS: HOME MEDICATIONS: Aspirin per day for 30 days and Percocet as needed for pain. Job ID: [id number] DocumentID: [id number] Dictated Date: 08/23/2022 07:46:51 Senior Clinical Project Manager Date: 08/23/2022 19:33:00 Dictated By: FRANC BELLO MD
[2022-08-24] MEDS: oxyCODONE/APAP 5/325MG (PERCOCET 5) TABLET PO PRN ×3 (00:17→06:47)
[2022-08-24] MEDS: NS IV 1000 ML 1,000 ML IV SCH (02:44)
[2022-08-24 03:22] VITALS: BP 135/69
[2022-08-24 05:36] LABS: HEMATOCRIT 40 % (40-54); HEMOGLOBIN 12.7 g/dL (13.3-17.7); MEAN CORPUSCULAR HEMOGLOBIN 30 pg (25-34); MEAN CORPUSCULAR HGB CONC 32 g/dL (32-36); MEAN CORPUSCULAR VOLUME 95 fL (80-99); MEAN PLATELET VOLUME 9.8 fL (9.0-12.2); PLATELET COUNT 219 10^3/uL (130-400); WHITE BLOOD COUNT 10.2 10^3/uL (4.3-11.0)
[2022-08-24 06:04] LABS: ALBUMIN 3.8 GM/DL (3.2-4.5); BILIRUBIN,TOTAL 0.7 MG/DL (0.1-1.0); CALCIUM 8.6 MG/DL (8.5-10.1); CREATININE SERUM 0.92 MG/DL (0.60-1.30); POTASSIUM 4.3 MMOL/L (3.6-5.0); TOTAL PROTEIN 6.9 GM/DL (6.4-8.2)
[2022-08-24] MEDS: MULTIVIT W/MINERALS TAB (THERAGRAN M) PO SCH (06:47)
--- NOTE | 2022-08-24 06:58 | Progress Note ---
Standard Progress Note Progress Notes/Assess & Plan Date Seen by a Provider: Aug 24, 2022 Time Seen by a Provider: 06:57 Progress/Assessment & Plan post op check no complaints radiographs--HW well positioned without fracture small bony fragment posteriorly LLE--intact DF and PF of toes and ankle 2plus DP pulse with brisk cap refill intact sensation to light touch throughout s/p LTKA mobilize as able Final Diagnosis no complaints Vital Signs Date Time Temp Pulse Resp B/P (MAP) Pulse Ox O2 Delivery O2 Flow Rate FiO2 08/24/22 03:22 36.3 77 20 135/69 (91) 96 Room Air 08/23/22 23:27 36.5 66 20 114/71 (85) 95 Room Air 08/23/22 21:08 18 08/23/22 20:00 Room Air 08/23/22 19:28 35.4 63 18 129/85 (100) 94 Room Air 08/23/22 15:30 36.5 64 20 118/58 (78) 97 Room Air 08/23/22 11:43 36.2 54 18 127/77 (94) 98 Room Air 08/23/22 09:46 18 08/23/22 08:00 95 Room Air 08/23/22 07:35 36.1 66 18 125/73 (90) 95 Room Air I & O 08/24/22 07:00 Intake Total 2250 ml Balance 2250 ml Laboratory Tests Test 08/24/22 05:15 Range/Units White Blood Count 10.2 4.3-11.0 10^3/uL Red Blood Count 4.20 L 4.30-5.52 10^6/uL Hemoglobin 12.7 L 13.3-17.7 g/dL Hematocrit 40 40-54 % Mean Corpuscular Volume 95 80-99 fL Mean Corpuscular Hemoglobin 30 25-34 pg Mean Corpuscular Hemoglobin Concent 32 32-36 g/dL Red Cell Distribution Width 13.7 10.0-14.5 % Platelet Count 219 130-400 10^3/uL Mean Platelet Volume 9.8 9.0-12.2 fL Sodium Level 139 135-145 MMOL/L Potassium Level 4.3 3.6-5.0 MMOL/L Chloride Level 105 98-107 MMOL/L Carbon Dioxide Level 22 21-32 MMOL/L Anion Gap 12 5-14 MMOL/L Blood Urea Nitrogen 10 7-18 MG/DL Creatinine 0.92 0.60-1.30 MG/DL Estimat Glomerular Filtration Rate 92 BUN/Creatinine Ratio 11 Glucose Level 100 70-105 MG/DL Calcium Level 8.6 8.5-10.1 MG/DL Corrected Calcium 8.8 8.5-10.1 MG/DL Total Bilirubin 0.7 0.1-1.0 MG/DL Aspartate Amino Transf (AST/SGOT) 50 H 5-34 U/L Alanine Aminotransferase (ALT/SGPT) 38 0-55 U/L Alkaline Phosphatase 82 40-136 U/L Total Protein 6.9 6.4-8.2 GM/DL Albumin 3.8 3.2-4.5 GM/DL LLE--incision clean and dry. No calf tenderness. Neg Mallorie's s/p LTKA doing well DC home after PT FRANC BELLO MD Aug 24, 2022 06:58
[2022-08-24] MEDS ORDERED: morphine INJ 4 MG/ML 1 ML (VIAL/SYRINGE) IVP PRN (07:00)
[2022-08-24 08:00] VITALS: BP 125/84
--- NOTE | 2022-08-24 08:08 | Progress Note ---
Objective Exam Vital Signs Vital Signs Date Time Temp Pulse Resp B/P (MAP) Pulse Ox O2 Delivery O2 Flow Rate FiO2 08/24/22 07:49 20 08/24/22 03:22 36.3 77 20 135/69 (91) 96 Room Air 08/23/22 23:27 36.5 66 20 114/71 (85) 95 Room Air 08/23/22 21:08 18 08/23/22 20:00 Room Air 08/23/22 19:28 35.4 63 18 129/85 (100) 94 Room Air 08/23/22 15:30 36.5 64 20 118/58 (78) 97 Room Air 08/23/22 11:43 36.2 54 18 127/77 (94) 98 Room Air 08/23/22 09:46 18 I & O 08/24/22 07:00 Intake Total 2250 ml Balance 2250 ml Results Lab Laboratory Tests 08/24/22 05:15: White Blood Count 10.2, Red Blood Count 4.20L, Hemoglobin 12.7L, Hematocrit 40, Mean Corpuscular Volume 95, Mean Corpuscular Hemoglobin 30, Mean Corpuscular Hemoglobin Concent 32, Red Cell Distribution Width 13.7, Platelet Count 219, Mean Platelet Volume 9.8, Sodium Level 139, Potassium Level 4.3, Chloride Level 105, Carbon Dioxide Level 22, Anion Gap 12, Blood Urea Nitrogen 10, Creatinine 0.92, Estimat Glomerular Filtration Rate 92, BUN/Creatinine Ratio 11, Glucose Level 100, Calcium Level 8.6, Corrected Calcium 8.8, Total Bilirubin 0.7, Aspartate Amino Transf (AST/SGOT) 50H, Alanine Aminotransferase (ALT/SGPT) 38, Alkaline Phosphatase 82, Total Protein 6.9, Albumin 3.8 Microbiology 08/22/22 MRSA Screen - Final, Complete MRSA not isolated BRYANT VILLEGAS MD Aug 24, 2022 08:08
[2022-08-24] MEDS: hydrOXYzine (ATARAX) 10 MG TAB PO SCH (08:55)
[2022-08-24] MEDS: CELECOXIB 100 MG (CeleBREX) CAP PO SCH (08:55)
[2022-08-24] MEDS: GABAPENTIN 400 MG (NEURONTIN) CAP PO SCH (08:56)
[2022-08-24] MEDS: ENOXAPARIN INJECTION 30 MG/0.3 ML SYR SC SCH (08:56)
[2022-08-24] MEDS: SENNA W/DOCUSATE (SENOKOT S) TABLET PO SCH (08:56)
[2022-08-24] MEDS: meTOproloL SUCCINATE 50 MG (TOPROL XL) TAB PO SCH (08:56)
[2022-08-24] MEDS: FINASTERIDE (PROSCAR) 5 MG TAB PO SCH (08:56)
[2022-08-24] MEDS: NON-FORMULARY MEDICATION 1 EA EA (Vilazodone Hydrochloride (Viibryd) 40 MG) PO SCH (08:57)
[2022-08-24] MEDS ORDERED: OXYC1TAB87 PO (10:10)
--- NOTE | 2022-08-24 10:54 | Physical Therapy Daily Note ---
PT Daily Note-Current Subjective Patient reports he had a rough night due to uncontrolled left knee pain. Pain Numeric Pain Scale: 9 Location: Left Location Body Site: Knee Pain Description: Acute Section J - Health Conditions 1. Rarely or not at all 2. Occasionally 3. Frequently 4. Almost constantly 8. Unable to answer Pain Effect on Sleep: 4 Pain Interference with Therapy: 4 Pain Interference w/Day-to-Day: 4 Mental Status Patient Orientation: Normal For Age Attachments: IV Transfers SCALE: Activities may be completed with or without assistive devices. 9-Mflkclrsvr-afpgzni completes the activity by him/herself with no assistance from a helper. 5-Set-up or Clean-up Assistance-helper sets up or cleans up; patient completes activity. [place] assists only prior to or following the activity. 4-Supervision or Touching Assistance-helper provides verbal cues and/or touching/steadying and/or contact guard assistance as patient completes activity. Assistance may be provided throughout the activity or intermittently. 3-Partial/Moderate Assistance-helper does LESS THAN HALF the effort. [place] lifts, holds or supports trunk or limbs, but provides less than half the effort. 2-Substantial/Maximal Assistance-helper does MORE THAN HALF the effort. [place] lifts or holds trunk or limbs and provides more than half the effort. 2-Zwtgglzpu-gygpsj does ALL the effort. Patient does none of the effort to complete the activity. Or, the assistance of 2 or more helpers is required for the patient to complete the activity. If activity was not attempted, code reason: 7-Patient Refused. 9-Not Applicable-not attempted and the patient did not perform the activity before the current illness, exacerbation or injury. 10-Not Attempted due to Environmental Limitations-(lack of equipment, weather restraints, etc.). 88-Not Attempted due to Medical Conditions or Safety Concerns. Sit to Lying (QC): 6 Lying to Sitting/Side of Bed(Q: 6 Sit to Stand (QC): 6 Weight Bearing Right Lower Extremity: Right Full Weight Bearing Left Lower Extremity: Left Weight Bearing/Tolerated Gait Training Distance: 500' Walk 10 feet (QC): 6 Walk 50 ft with 2 Turns(QC): 6 Walk 150 ft (QC): 6 Gait Assistive Device: FWW steady, reciprocal pattern/antalgic Exercises Supine Ex: Ankle pumps, Quad Set, Heel Slides, Straight leg raise Supine Reps: 15 Seated Therapy Exercises: Long arc quads Seated Reps: 15 Assessment Patient progressing with treatment plan and has been instructed to perform HEP issued at preop when he returns to home on this date. 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 PT Jail Goals Time Frame: Aug 29, 2022 Roll Left & Right (QC): 6 Sit to Lying (QC): 6 Lying-Sitting on Side/Bed(QC): 6 Sit to Stand (QC): 6 Chair/Fai-ge-Cmzvf Xfer(QC): 6 Walk 10 feet (QC): 6 Walk 50ft with 2 Turns (QC): 6 Walk 150 ft (QC): 6 PT Plan Treatment/Plan Treatment Plan: Discontinue PT Treatment Plan: Bed Mobility, Education, Functional Activity Jose, Functional Strength, Gait, Safety, Therapeutic Exercise, Transfers Treatment Duration: Aug 29, 2022 Frequency: 11 times per week Estimated Hrs Per Day: .5 hour per day Patient and/or Family Agrees t: Yes Time Time In: 748 Time Out: 811 DATE: Aug 24, 2022 Total Billed Treatment Time: 23 Total Billed Treatment 1 visit EX 14 min GT 9 min PAT BLACKWELL PT Aug 24, 2022 10:54
[2022-08-24 11:55] VITALS: BP 125/84
== END 2022-08-24 11:33 | disposition home or self-care (01) | DRG 470 ==
LOC: 4TH 07:17 → SURG 07:18 → 4TH 11:30
PROVIDERS: ADMIT Orthopaedic Surgery; ATTEND Orthopaedic Surgery
PROC: 0SRD0J9 Replacement of Left Knee Joint with Synthetic Substitute, Cemented, Open Approach (ICD-10-PCS; principal; 2022-08-22 08:55)
DX: M17.12 Unilateral primary osteoarthritis, left knee (principal); N40.0 Benign prostatic hyperplasia without lower urinary tract symptoms; F17.210 Nicotine dependence, cigarettes, uncomplicated; H54.7 Unspecified visual loss; F41.9 Anxiety disorder, unspecified; F32.A Depression, unspecified; Z88.6 Allergy status to analgesic agent; Z88.0 Allergy status to penicillin; Z88.2 Allergy status to sulfonamides
CPT/HCPCS: 36415; 73560; 80053; 85014; 85018; 85027; 86850; 86900; 86901; 87081

== ENCOUNTER → 2022-09-12 | Outpatient (RCR) | payer MEDICARE, OTHER ==
[~2022-09-12] MED LIST changes: +CELE100C84 PO; +CETI-458 PO
== END | disposition home or self-care (01) ==
PROVIDERS: ATTEND Orthopaedic Surgery
DX: M17.12 Unilateral primary osteoarthritis, left knee (principal); Z96.652 Presence of left artificial knee joint

== ENCOUNTER 2022-10-12 09:59 | Outpatient (RCR) | payer MEDICARE, OTHER | END 2022-10-13 | disposition home or self-care (01) | PROVIDERS: ATTEND Orthopaedic Surgery | DX: M17.12 Unilateral primary osteoarthritis, left knee (principal); Z96.652 Presence of left artificial knee joint ==

== ENCOUNTER 2022-10-19 13:41 | Outpatient (RCR) | payer MEDICARE, OTHER | END 2022-10-19 17:00 | disposition home or self-care (01) | PROVIDERS: ATTEND Orthopaedic Surgery | DX: M17.12 Unilateral primary osteoarthritis, left knee (principal); Z96.652 Presence of left artificial knee joint ==

== ENCOUNTER 2023-09-18 10:08 | Outpatient (CLI) | payer MEDICARE, OTHER ==
[~2023-09-18] VITALS: Ht 180.3 cm; Wt 112.6 kg
[~2023-09-18 10:08] MED LIST changes: +CELE-112 PO; -CELE100C84 PO; -GABA-490 PO; +GABA-491 PO
[2023-09-19] MEDS ORDERED: HYDR-3817 PO (14:27)
== END 2023-09-18 15:00 | disposition home or self-care (01) ==
LOC: PREOP 10:08
PROVIDERS: ATTEND Surgery
DX: Z01.818 Encounter for other preprocedural examination (principal)